=== PATIENT | female | born 1950 | race Caucasian/White ===

== ENCOUNTER → 2019-11-10 16:10 | Outpatient (BNVA) | payer MEDICARE, OTHER, SELFPAY | PROVIDERS: Family Provider Family Medicine; PCP Family Medicine; Visit Provider Internal Medicine Cardiovascular Disease | DX: I10 Essential (primary) hypertension (principal); R06.02 Shortness of breath; I48.0 Paroxysmal atrial fibrillation; E78.2 Mixed hyperlipidemia; I34.0 Nonrheumatic mitral (valve) insufficiency; Z79.01 Long term (current) use of anticoagulants; E78.5 Hyperlipidemia, unspecified | CPT/HCPCS: 80048; 80061; 80076; 82550; 84443; 85025 ==

== ENCOUNTER 2019-12-01 13:46 | Outpatient (CLI) | payer MEDICARE, OTHER, SELFPAY ==
--- NOTE | 2019-12-01 14:03 | USCV_ITS ---
Td Delphine Age: 69 Gender: F : 1950 Exam Date: 12/01/2019 14:12 Ordering Phys: Faith Escobar MD ([email or web address]) Technologist: Liv Avila Exam Location: [facility] [place] Indication: EXERCISE INDUCED FATIGUE BP: / HR: 56 Rhythm: Sinus Technical Quality: Adequate MEASUREMENTS (Male / Female) Normal Values 2D ECHO LV Diastolic Diameter PLAX 3.5 cm 4.2 - 5.9 / 3.9 - 5.3 cm LV Systolic Diameter PLAX 1.8 cm LV Chamber Size 3.7 cm IVS Diastolic Thickness 1.0 cm 0.6 - 1.0 / 0.6 - 0.9 cm IVS Systolic Thickness 1.6 cm LVPW Diastolic Thickness 1.1 cm 0.6 - 1.0 / 0.6 - 0.9 cm LVPW Systolic Thickness 1.3 cm RV Chamber Size 2.0 cm LVOT Diameter 2.1 cm LV Ejection Fraction 2D Teich 80.1 % LV Ejection Fraction MOD 2C 71.0 % LV Ejection Fraction 2C AL 73.2 % LA Diameter 2.9 cm LA Width 3.3 cm LA Height 3.4 cm RA Width 2.8 cm RA Height 3.2 cm Aorta at Sinotubular Diameter 3.2 cm M-MODE LV Diastolic Diameter MM 3.9 cm 4.2 - 5.9 / 3.9 - 5.3 cm LV Systolic Diameter MM 2.2 cm LV Ejection Fraction MM Teich 75.9 % IVS Diastolic Thickness MM 1.1 cm 0.6 - 1.0 / 0.6 - 0.9 cm IVS Systolic Thickness MM 1.5 cm LVPW Diastolic Thickness MM 1.1 cm 0.6 - 1.0 / 0.6 - 0.9 cm LVPW Systolic Thickness MM 1.4 cm RV Diastolic Diameter MM 1.3 cm Aortic Annulus Diameter 2.8 cm LA Ao Ratio MM 1.0 MV E Point Septal Separation 0.2 cm DOPPLER AV Peak Velocity 163.0 cm/s LVOT Peak Velocity 129.0 cm/s AV Area Cont Eq vti 2.8 cm squared AV Area Cont Eq pk 2.6 cm squared MV Area PHT 4.0 cm squared Mitral E to A Ratio 1.1 MV E' Velocity 7.0 cm/s Mitral E to MV E' Ratio 12.8 Mitral E to LV E' Lateral Ratio 14.0 Mitral E to LV E' Septal Ratio 11.9 TR Peak Velocity 213.0 cm/s TR Peak Gradient 18.2 mmHg TR Mean Velocity 136.7 cm/s TR Mean Gradient 8.5 mmHg TR Velocity Time Integral 55.2 cm TV Peak E Velocity 50.0 cm/s Right Atrial Pressure 3.0 mmHg Pulmonary Artery Systolic Pressu 21.1 mmHg PV Peak Velocity 76.0 cm/s RV Acceleration Time 0.2 s RV Ejection Time 0.4 s RV AcT/ET 0.4 FINDINGS Left Ventricle Normal left ventricular size and systolic function, EF 76 %. No regional wall motion abnormalities. Right Ventricle Normal right ventricular size and systolic function. Right Atrium The right atrium is normal in size. Left Atrium The left atrium is normal in size. Mitral Valve Thickened mitral valve. Mild mitral valve regurgitation. Aortic Valve Thickened aortic valve. Trace to mild aortic valve regurgitation. Tricuspid Valve Mild tricuspid valve regurgitation. Pulmonic Valve No gross abnormalities noted Pericardium Normal pericardium without effusion. Aorta Normal ascending aorta dimension. CONCLUSIONS Normal left ventricular size and systolic function, EF 76 %. No regional wall motion abnormalities. Thickened mitral valve. Mild mitral valve regurgitation. Thickened aortic valve. Trace to mild aortic valve regurgitation. Mild tricuspid valve regurgitation. Estimated pulmonary artery peak systolic pressure of 21 mmHg There is no pericardial effusion. There are no intracardiac masses. Compared to the study from 01/31/2017, there may not be a significant change Dr Faith Escobar MD [facility] (Electronically Signed) Final Date: 02 December 2019 09:18 S
== END 2019-12-01 13:47 | disposition home or self-care (01) ==
LOC: RAD 13:52
PROVIDERS: PCP Family Medicine; Visit Provider Internal Medicine Cardiovascular Disease
DX: R53.83 Other fatigue (principal)
CPT/HCPCS: 93306

== ENCOUNTER → 2019-12-29 08:34 | Outpatient (BNVA) | payer MEDICARE, OTHER, SELFPAY | PROVIDERS: PCP Family Medicine; Visit Provider Nurse Practitioner | DX: R41.9 Unspecified symptoms and signs involving cognitive functions and awareness (principal) | CPT/HCPCS: 99213 ==

== ENCOUNTER → 2020-08-18 09:14 | Outpatient (BNVA) | payer MEDICARE, OTHER, SELFPAY | PROVIDERS: PCP Family Medicine; Visit Provider Surgery | DX: Z20.822 Contact with and (suspected) exposure to COVID-19 (principal) | CPT/HCPCS: 87635 ==

== ENCOUNTER 2020-08-23 06:46 | Day surgery (SDC) | payer MEDICARE, OTHER, SELFPAY ==
--- NOTE | 2020-08-23 06:56 | ANES.PREANE2 ---
Pre-Anesthetic Assessment Pre-Anesthetic Assessment: Height/Weight: Height 1.57 m Weight 56.699 kg Preop Diagnosis: screening Proposed Procedure: Operation Date: 08/23/20 08:00 Proposed Procedures p Colonoscopy 44893 z86.010(Not Applicable) - Kelton Wood MD Familial anesthetic complications: None Was Beta Madelyn taken within 24 hours: Yes Was Clonidine taken within 24 hours: N/A Last intake: NPO > 8 hrs Social: Social History: No alcohol and No tobacco Exam: Pre-Anes Outpt Exam: alert, oriented x 3, clear to auscultation bilaterally and regular rate & rhythm Airway: Cervical ROM: WNL MP: 2 Dentition: False CV/HEM: CV/HEM: Afib (off pradaxa since friday) and HTN Comments: mild mitral regurge, rarely every takes NTG Metabolic: Metabolic: Thyroid Anesthetic Plan: ASA status: 3 Anesthesia: MAC Risk of > 500 ml blood loss (7ml/kg in children): No PFSH Anesthesia PFSH: Medical History Atrial fibrillation Exercise-induced leg fatigue History of colon polyps Hyperlipemia Hypertension Mitral regurgitation Surgical History H/O foot surgery H/O laminectomy H/O: hysterectomy History of appendectomy Family History Mother Stroke Other Diabetes Social History Smoking and tobacco status: never smoked History of recent travel: No Data Anesthesia Cardiac Studies: No Data to Display
[2020-08-23 07:17] VITALS: BP 141/77; PULSE 58; RESP 16; TEMP 36.5; O2SAT 100
[2020-08-23] MEDS: sodium chloride 0.9% 1,000 ML 30 ML IV (07:38)
--- NOTE | 2020-08-23 07:42 | P.HP_ITS ---
Same Day Surgery H&P Indication for Procedure/HPI DATE OF PROCEDURE: August 23, 2020 CHIEF COMPLAINT/INDICATIONFOR SURGICAL PROCEDURE: History of polyps PREOP DIAGNOSIS: History of colon polyps PLANNED PROCEDRUE: Operation Date: 08/23/20 08:00 Proposed Procedures p Colonoscopy 92062 z86.010(Not Applicable) - Kelton Wood MD This is a pleasant 69 years old female patient presents to my practice with history of colon polyps as at some point she had tubulovillous adenoma. According to the patient had a colonoscopy back in 2014 and she reports that was normal yet she is concerned about her history of colon polyps. She denies any bleeding per rectum or nonintentional weight loss or colon cancer history. Patient is on Pradaxa for her cardiac condition. Interim history 08/23/2020 Patient comes today for surveillance colonoscopy and she did stop the Pradaxa last Friday. ROS All systems have been reviewed negative except as per the above or per problem list Medications/Allergies* Home Medications Medication Instructions Recorded Confirmed Type dicyclomine 10 mg capsule 10 mg PO DAILY PRN cap 11/10/19 08/22/20 History levothyroxine 50 mcg tablet 50 mcg PO DAILY tab 11/10/19 08/22/20 History nitroglycerin 0.4 mg sublingual 0.4 mg SUBLINGUAL Q5M PRN 11/10/19 08/22/20 History tablet Allergies/Adverse Reactions Allergy/AdvReac Type Severity Reaction Status Date / Time Penicillins Allergy itching, Verified 08/23/20 07:43 rash Sulfa (Sulfonamide Allergy pt does Verified 08/23/20 07:43 Antibiotics) not remember the reaction Current Medications: Generic Name Dose Route Start Last Admin Trade Name Freq PRN Reason Stop Dose Admin Sodium Chloride 1,000 mls @ 30 mls/hr 08/23/20 07:15 08/23/20 07:38 Sodium Chloride 0.9% IV 08/24/20 07:14 30 mls/hr .Q24H COLLETTE Administration Pertinent History/Comorbid Conditions* Medical History (Updated 06/15/20 @ 10:52 by Kelton Wood MD) Atrial fibrillation Exercise-induced leg fatigue History of colon polyps Hyperlipemia Hypertension Mitral regurgitation Surgical History (Updated 11/10/19 @ 15:59 by Faith Escobar MD) H/O foot surgery H/O laminectomy H/O: hysterectomy History of appendectomy Family History (Updated 12/29/19 @ 08:51 by Pao Shah LPN) Diabetes Stroke Mother Social History Smoking and tobacco status: never smoked History of recent travel: No Pertinent Exam Findings oriented x 3, clear to auscultation bilaterally, regular rate & rhythm and procedure specific exam findings (Abdominal examination nontender nondistended soft) Recommendations Surgery/Procedure today (Surveillance colonoscopy) Other Plans: Plan of care; After thorough history and physical examination and reviewing the chart, plan to perform surveillance colonoscopy. I discussed with the patient in details the risks,benefits,alternatives and indications.The risk of aspiration, bleeding, soft tissue injury, perforation of the colon and other potential concomitant complications were explained to the patient in details,also the potential need for Laproscoy/Laparotomy to repair any related complications including but not limited to colectomy and or Closotomy.The patient understood this well and did agree to proceed. Rationale was carefully and clearly discussed with the patient.Appropriate informed consent have been reviewed and signed All questions have been answered and all concerns have been addressed to patient's satisfaction. Verbal and written Instructions were given to the patient for colonoscopy prep Coding Level of Care Code Acute Hadoop Software Engineer for Shaista Ramos
[2020-08-23 08:11] VITALS: BP 100/58; PULSE 53; RESP 16; TEMP 36.1; O2SAT 97
--- NOTE | 2020-08-23 08:15 | ANE.PACU2 ---
Inpatient post-anesthesia follow up: Airway intact: Yes Vital signs: Temperature 97.7 F Pulse Rate 58 Respiratory Rate 16 Blood Pressure 141/77 Pulse Oximetry 100 Oxygen Delivery Me thod Oxygen Flow Rate Fraction of Inspir ed Oxygen Hydration adequate: Yes Nausea and vomiting: No Pain level: 1 Mental status: Baseline
[2020-08-23 08:39] VITALS: BP 122/54; PULSE 54; RESP 16; O2SAT 98
== END 2020-08-23 08:53 | disposition home or self-care (01) ==
PROVIDERS: PCP Family Medicine; Visit Provider Surgery
PROC: 0DJD8ZZ Inspection of Lower Intestinal Tract, Via Natural or Artificial Opening Endoscopic (ICD-10-PCS; CPT 45378; principal; 2020-08-23 08:00)
DX: Z12.11 Encounter for screening for malignant neoplasm of colon (principal); Z86.010 Personal history of colon polyps; K57.30 Diverticulosis of large intestine without perforation or abscess without bleeding; E78.5 Hyperlipidemia, unspecified; I10 Essential (primary) hypertension; I48.91 Unspecified atrial fibrillation; I34.0 Nonrheumatic mitral (valve) insufficiency; Z83.3 Family history of diabetes mellitus; Z82.3 Family history of stroke
CPT/HCPCS: 45378; 96360; J2704; J7030

== ENCOUNTER → 2020-10-06 08:21 | Outpatient (BNVA) | payer MEDICARE, OTHER, SELFPAY | PROVIDERS: PCP Family Medicine; Visit Provider Nurse Practitioner | DX: G31.84 Mild cognitive impairment of uncertain or unknown etiology (principal) | CPT/HCPCS: 99212 ==

== ENCOUNTER 2021-07-09 08:12 | Outpatient (CLI) | payer MEDICARE, OTHER, SELFPAY ==
--- NOTE | 2021-07-09 08:25 | MM_ITS ---
WS: [id number] BILATERAL SCREENING DIGITAL MAMMOGRAM WITH CAD HISTORY: SCREENING COMPARISON: 06/06/2020, 12/09/2018 and 11/20/2017 Bilateral CC and MLO views submitted. Computer aided detection analyzed. Breast composition: The breasts are heterogeneously dense, which may obscure small masses. No suspici ous masses, microcalcifications or architectural distortion. Benign calcifications and arterial calci fications. MM/[place] [id number] IMPRESSION: BI-RADS: 2-Benign FOLLOW UP: 1 Year Follow-up
== END 2021-07-09 08:13 | disposition home or self-care (01) ==
PROVIDERS: PCP Family Medicine; Visit Provider Family Medicine
DX: Z12.31 Encounter for screening mammogram for malignant neoplasm of breast (principal)
CPT/HCPCS: 77067

== ENCOUNTER → 2021-10-04 09:43 | Outpatient (BNVA) | payer MEDICARE, OTHER, SELFPAY | PROVIDERS: PCP Family Medicine; Visit Provider Internal Medicine Cardiovascular Disease | DX: I48.0 Paroxysmal atrial fibrillation (principal); I34.0 Nonrheumatic mitral (valve) insufficiency; I10 Essential (primary) hypertension; E78.2 Mixed hyperlipidemia; Z79.01 Long term (current) use of anticoagulants | CPT/HCPCS: 99214 ==

== ENCOUNTER 2022-03-23 02:45 | Inpatient (IN) | payer MEDICARE, OTHER, SELFPAY ==
[2022-03-23] VITALS (14 sets, daily range): BP systolic 115–158; BP diastolic 62–83; PULSE 47–87; RESP 15–20; TEMP 36.6–36.9; O2SAT 91–100; BMI 21.6
--- NOTE | 2022-03-23 03:12 | ECG_ITS ---
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 Measurements Intervals [place] Rate: 51 P: 71 NV: 164 QRS: 68 QRSD: 98 T: 60 QT: 488 QTc: 450 Interpretive Statements SINUS BRADYCARDIA Compared to ECG 08/09/2018 08:12:10 No significant changes Electronically Signed On 03-23-2022 10:50:32 CDT by Lucille Ho M.D. [id number]
--- NOTE | 2022-03-23 03:18 | XRR_ITS ---
PROCEDURE INFORMATION: Exam: XR Chest Exam date and time: 03/23/2022 4:16 AM Age: 71 years old Clinical indication: Pain; Chest pressure; Additional info: Abd pain/back pain TECHNIQUE: Imaging protocol: Radiologic exam of the chest. Views: 1 view. COMPARISON: CR XR chest 1V [id number] 08/09/2018 8:22 AM FINDINGS: Lungs: Unremarkable. No consolidation. Pleural spaces: Unremarkable. No pleural effusion. No pneumothorax. Heart/Mediastinum: Unremarkable. No cardiomegaly. Bones/joints: Unremarkable. XR/XR chest 1V portable [id number] IMPRESSION: No acute findings.
[2022-03-23 03:28] LABS: Basophils # 0.1 10^3/uL (0.0-0.1); Basophils % 0.6 %; Eosinophils % 0.3 %; Hematocrit 37.6 % (37.0-47.0); Hemoglobin 12.5 g/dL (11.5-15.3); Lymphocytes # 1.2 10^3/uL (0.8-4.8); Lymphocytes % 12.2 %; Mean Corpuscular HGB Conc 33.2 g/dL (30.0-36.0); Mean Corpuscular Hemoglobin 32.5 pg (28.0-34.0); Mean Corpuscular Volume 97.7 fl (81-99); Mean Platelet Volume 10.1 fL (7.4-10.4); Monocytes # 0.5 10^3/uL (0.2-0.9); Monocytes % 4.8 %; Neutrophils # 8.12 10^3/uL (1.8-7.7); Neutrophils % 81.8 %; Nucleated Red Blood Cells % 0 %; Platelet Count 206 10^3/cmm (130-400); Red Blood Count 3.85 10^6/uL (4.1-5.3); Red Cell Distribution Width 13.1 % (12.1-15.1); White Blood Count 9.9 10^3/uL (4.0-10.0)
[2022-03-23] MEDS: HYDROmorphone 1 mg/mL INJ 1 mL 0.5 MG IVP ×2 (03:28→06:29)
[2022-03-23] MEDS: ondansetron 2 mg/ML SDV 2 mL 4 MG IVP ×3 (03:28→20:44)
--- NOTE | 2022-03-23 03:42 | CTR_ITS ---
PROCEDURE INFORMATION: Exam: CT Abdomen And Pelvis Without Contrast Exam date and time: 03/23/2022 4:26 AM Age: 71 years old Clinical indication: Abdominal pain; Flank; Right; Prior surgery; Surgery date: 6+ months; Surgery type: Appy, hysterectomy; Additional info: R flank pain TECHNIQUE: Imaging protocol: Computed tomography of the abdomen and pelvis without contrast. Radiation optimization: All CT scans at this facility use at least one of these dose optimization techniques: automated exposure control; mA and/or kV adjustment per patient size (includes targeted exams where dose is matched to clinical indication); or iterative reconstruction. COMPARISON: CT abdomen pelvis w con* [id number] 07/21/2018 9:53 AM RADIATION DOSE METRICS: Total DLP (mGy-cm): 358.31 FINDINGS: Diaphragm: Small sliding hiatal hernia. Liver: Normal. No mass. Gallbladder and bile ducts: Normal. No calcified stones. No ductal dilation. Pancreas: Normal. No ductal dilation. Spleen: Normal. No splenomegaly. Adrenal glands: Normal. No mass. Kidneys and ureters: Normal. No hydronephrosis. Stomach and bowel: There are multiple loops of dilated fluid-filled small bowel in the pelvis. There is also fecalization of contents in some of the small bowel loops. These loops are dilated up to a diameter of 3.2 cm. The distal ileum is not dilated. These findings could be due to a distal small bowel obstruction. There is a prominent amount of stool in the colon. There is sigmoid diverticulosis but no evidence of acute diverticulitis. Appendix: No evidence of appendicitis. Intraperitoneal space: Small ascites in the abdomen and pelvis. No free air. Vasculature: Mild calcification of the abdominal aorta. No abdominal aortic aneurysm. Lymph nodes: Unremarkable. No enlarged lymph nodes. Urinary bladder: Unremarkable as visualized. Reproductive: Hysterectomy. Bones/joints: Chronic degenerative changes are present in the lumbar spine especially in the lumbar facet joints. There is grade 1-2 spondylolisthesis at the L4-L5 level. No acute bony abnormality. Soft tissues: Unremarkable. CT/CT kidney stone [id number] IMPRESSION: 1. There are multiple loops of dilated small bowel in the pelvis with normal caliber of the more distal ileum. These findings may be due to a distal small bowel obstruction. 2. Small ascites. No free air. 3. Diverticulosis. 4. Prominent chronic degenerative changes in the spine.
[2022-03-23 03:48] LABS: Alanine Aminotransferase 19 U/L (0-33); Albumin Level 4.6 g/dL (3.5-5.2); Alkaline Phosphatase 77 U/L (35-105); Anion Gap 14.6 (5-19); Aspartate Amino Transferase 24 U/L (0-32); Blood Urea Nitrogen 20 mg/dL (8-23); Calcium 10.2 mg/dL (8.5-10.5); Carbon Dioxide 25 mmol/L (22-29); Chloride 97 mmol/L (98-107); Globulin 2.4 g/dL (1.3-4.6); Glucose 168 mg/dL (65-115); Osmolality Calculated 282 mOsm/kg (285-295); Potassium 3.6 mmol/L (3.5-5.1); Sodium 133 mmol/L (136-145); Total Bilirubin 0.2 mg/dL (0.15-1.2)
--- NOTE | 2022-03-23 03:54 | ED_ITS ---
Documented by User: Merlin Jacobson DO 03/23/22 13:10 HPI - Abdominal Pain General: Chief Complaint: Abdominal Pain Stated Complaint: n/v , possible food poision Time Seen by Provider: 03/23/22 03:01 Source: patient and family History of Present Illness: 71-year-old female with a history of severe right flank and abdominal pain this morning. She notes that she felt wonderful yesterday. Pain was sudden in onset. She has vomited several times as well. She denies fever. No diarrhea. No blood in the stool Pertinent past history: other Onset (ago): hour(s) Location: R flank Severity: severe Quality: cramping and stabbing Radiation: RLQ Exacerbating factors: movement Relieving factors: nothing Associated Symptoms: Reports chills, nausea and vomiting; Denies bloating, change in bowel habits, change in stool character, constipation, GI cramping, diarrhea, fever(s) and hematuria Review of Systems Const: Reports: chills; Denies: fever(s) ENMT: Denies: throat pain Card: Denies: chest pain or palpitations Resp: Denies: dyspnea, productive cough or non-productive cough GI: Reports: abdominal pain, nausea and vomiting; Denies: diarrhea, constipation, bloating, GI cramping, change in bowel habits or change in stool character : Reports: flank pain; Denies: difficulty voiding, urinary urgency or hematuria Musc: Reports: back pain; Denies: neck pain PFSH ED 2 PFSH: Medical History Atrial fibrillation Diverticulosis Exercise-induced leg fatigue History of colon polyps Hyperlipemia Hypertension Mild cognitive impairment Mitral regurgitation Surgical History H/O foot surgery H/O laminectomy H/O: hysterectomy History of appendectomy History of colonoscopy (~2014) History of ear surgery Hx of cataract extraction Hx of tubal ligation Family History Mother Stroke CAD (coronary artery disease) Cancer Dementia Diabetes Father CAD (coronary artery disease) Cancer Chronic kidney disease (CKD) Diabetes Denies family history of Clotting disorder Suicide Anesthesia complication Bleeding disorder Lung disease Social History Smoking and tobacco status: never smoked Alcohol intake: never History of recent travel: No Physical Exam Const: GENERAL APPEARANCE: cooperative, ill appearing and frail appearing HENMT: COMMON NORMALS: normocephalic, atraumatic and Normal external nose present HEAD & SCALP: normocephalic and atraumatic NOSE: Normal external nose present Eye: COMMON NORMALS: Equal, round and reactive pupils present and EOMs intact bilaterally PUPIL: Yes Equal, round and reactive pupils present Neck/C-Spine: CERVICAL SPINE: No Cervical spine tenderness Chest: COMMONS NORMALS: normal inspection of the chest Resp: COMMON NORMALS: normal respiratory effort, No use of accessory muscles and clear to auscultation bilaterally AUSCULTATION: clear to auscultation bilaterally Cardio: COMMON NORMALS: regular rhythm RATE: bradycardic RHYTHM: regular rhythm GI: COMMON NORMALS: Soft to palpation PALPATION: Yes Soft to palpation and Yes Tenderness to palpation present (GI) Details: RLQ and RUQ : BLADDER/KIDNEY EXAM: Yes CVA tenderness on the right Back/Pelvis: GENERAL BACK: Yes CVA tenderness Extremity: COMMON NORMALS: no pedal edema Neuro: FILIBERTO COMA SCALE: document GCS findings [place] coma scale eye opening: Spontaneous [place] coma scale verbal response: Orientated [place] coma scale motor response: Obey commands [place] coma scale total score: 15 Course Vital Signs: Vital signs: Vital Signs Temperature 98.4 F 03/23/22 02:52 Pulse Rate 79 03/23/22 11:55 Respiratory Rate 15 03/23/22 11:55 Blood Pressure 158/81 03/23/22 11:55 Pulse Oximetry 95 03/23/22 11:55 Oxygen Delivery Me thod 03/23/22 11:55 MDM - Abdominal Pain Lab Data : 03/23/22 03:14 03/23/22 03:14 Labs/Radiology: Radiology Impressions Abdomen/Pelvis CT 03/23/22 03:42 IMPRESSION: 1. There are multiple loops of dilated small bowel in the pelvis with normal caliber of the more distal ileum. These findings may be due to a distal small bowel obstruction. 2. Small ascites. No free air. 3. Diverticulosis. 4. Prominent chronic degenerative changes in the spine. Chest X-Ray 03/23/22 08:21 IMPRESSION: 1. The tip of the nasogastric tube projects on the stomach but the distal side port projects just above the level of the GE junction. 2. No significant cardiopulmonary abnormality. Laboratory Results WBC 9.9 10^3/uL (4.0-10.0) 03/23/22 03:14 RBC 3.85 10^6/uL (4.1-5.3) L 03/23/22 03:14 Hgb 12.5 g/dL (11.5-15.3) 03/23/22 03:14 Hct 37.6 % (37.0-47.0) 03/23/22 03:14 MCV 97.7 fl (81-99) 03/23/22 03:14 MCH 32.5 pg (28.0-34.0) 03/23/22 03:14 MCHC 33.2 g/dL (30.0-36.0) 03/23/22 03:14 RDW 13.1 % (12.1-15.1) 03/23/22 03:14 Plt Count 206 10^3/cmm (130-400) 03/23/22 03:14 MPV 10.1 fL (7.4-10.4) 03/23/22 03:14 Neut % (Auto) 81.8 % 03/23/22 03:14 Lymph % (Auto) 12.2 % 03/23/22 03:14 [place] % (Auto) 4.8 % 03/23/22 03:14 Eos % (Auto) 0.3 % 03/23/22 03:14 Baso % (Auto) 0.6 % 03/23/22 03:14 Neut # (Auto) 8.12 10^3/uL (1.8-7.7) H 03/23/22 03:14 Lymph # (Auto) 1.2 10^3/uL (0.8-4.8) 03/23/22 03:14 [place] # (Auto) 0.5 10^3/uL (0.2-0.9) 03/23/22 03:14 Eos # (Auto) 0.0 10^3/uL (0.0-0.8) 03/23/22 03:14 Baso # (Auto) 0.1 10^3/uL (0.0-0.1) 03/23/22 03:14 Nucleated RBC % (auto) 0 % 03/23/22 03:14 Nucleated RBCs # 0.0 /100WBC 03/23/22 03:14 Sodium 133 mmol/L (136-145) L 03/23/22 03:14 Potassium 3.6 mmol/L (3.5-5.1) 03/23/22 03:14 Chloride 97 mmol/L (98-107) L 03/23/22 03:14 Carbon Dioxide 25 mmol/L (22-29) 03/23/22 03:14 Anion Gap 14.6 (5-19) 03/23/22 03:14 BUN 20 mg/dL (8-23) 03/23/22 03:14 Creatinine 0.9 mg/dL (0.5-0.9) 03/23/22 03:14 GFR Calculation Not Reportable 03/23/22 03:14 Glucose 168 mg/dL (65-115) H 03/23/22 03:14 Calculated Osmolality 282 mOsm/kg (285-295) L 03/23/22 03:14 Calcium 10.2 mg/dL (8.5-10.5) 03/23/22 03:14 Total Bilirubin 0.2 mg/dL (0.15-1.2) 03/23/22 03:14 AST 24 U/L (0-32) 03/23/22 03:14 ALT 19 U/L (0-33) 03/23/22 03:14 Alkaline Phosphatase 77 U/L (35-105) 03/23/22 03:14 Total Protein 7.0 g/dL (6.6-8.7) 03/23/22 03:14 Albumin 4.6 g/dL (3.5-5.2) 03/23/22 03:14 Globulin 2.4 g/dL (1.3-4.6) 03/23/22 03:14 Urine Color Yellow (Yellow) 03/23/22 03:23 Urine Appearance Hazy (CLEAR) A 03/23/22 03:23 Urine pH 8 (5-7) H 03/23/22 03:23 Ur Specific [place] 1.010 (1.005-1.030) 03/23/22 03:23 Urine Protein Neg (Negative) 03/23/22 03:23 Urine Glucose (UA) Norm (Normal) 03/23/22 03:23 Urine Ketones Negative (Negative) 03/23/22 03:23 Urine Blood 2+ (Negative) H 03/23/22 03:23 Urine Nitrate Negative (Negative) 03/23/22 03:23 Urine Bilirubin Neg (Negative) 03/23/22 03:23 Prot Sulfosalicylic Acd Negative (Negative) 03/23/22 03:23 Urine Urobilinogen Norm mg/dL (Negative) 03/23/22 03:23 Ur Leukocyte Esterase Negative (Negative) 03/23/22 03:23 Urine RBC None /hpf (0-2) 03/23/22 03:23 Urine WBC None /hpf (0-5) 03/23/22 03:23 Ur Squamous Epith Cells None /hpf (0-5) 03/23/22 03:23 Amorphous Sediment 4+ /hpf 03/23/22 03:23 Urine Bacteria None /hpf (NONE) 03/23/22 03:23 Discharge Plan Discharge Patient Disposition: Admitted As Inpatient Admit Provider: Jorge Smalls Clinical Impression: Small bowel obstruction Condition: Stable Coding Level of Care Code ED Personal Injury Legal Assistant for Chg Fwd Exam Comprehensive Documented by User: Bessy Horne MD 03/23/22 08:07 HPI - Abdominal Pain General: Chief Complaint: Abdominal Pain Stated Complaint: n/v , possible food poision Time Seen by Provider: 03/23/22 03:01 [facility] ED PFSH: Medical History Atrial fibrillation Diverticulosis Exercise-induced leg fatigue History of colon polyps Hyperlipemia Hypertension Mild cognitive impairment Mitral regurgitation Surgical History H/O foot surgery H/O laminectomy H/O: hysterectomy History of appendectomy History of colonoscopy (~2014) History of ear surgery Hx of cataract extraction Hx of tubal ligation Family History Mother Stroke CAD (coronary artery disease) Cancer Dementia Diabetes Father CAD (coronary artery disease) Cancer Chronic kidney disease (CKD) Diabetes Denies family history of Clotting disorder Suicide Anesthesia complication Bleeding disorder Lung disease Social History Smoking and tobacco status: never smoked Alcohol intake: never History of recent travel: No Physical Exam Neuro: FILIBERTO COMA SCALE: document GCS findings [place] coma scale total score: 15 Course Vital Signs: Vital signs: Vital Signs Temperature 98.4 F 03/23/22 02:52 Pulse Rate 79 03/23/22 11:55 Respiratory Rate 15 03/23/22 11:55 Blood Pressure 158/81 03/23/22 11:55 Pulse Oximetry 95 03/23/22 11:55 Oxygen Delivery Me thod 03/23/22 11:55 MDM - Abdominal Pain Medical Decision Making Patient presents here with abdominal pain along with vomiting CT shows distal small bowel obstruction I did speak to the hospitalist will place NG tube and admit at this time. Lab Data : 03/23/22 03:14 03/23/22 03:14 Labs/Radiology: Radiology Impressions Abdomen/Pelvis CT 03/23/22 03:42 IMPRESSION: 1. There are multiple loops of dilated small bowel in the pelvis with normal caliber of the more distal ileum. These findings may be due to a distal small bowel obstruction. 2. Small ascites. No free air. 3. Diverticulosis. 4. Prominent chronic degenerative changes in the spine. Chest X-Ray 03/23/22 08:21
[2022-03-23] MEDS: sodium chloride 0.9% 1,000 ML 999 ML IV (04:15)
[2022-03-23 04:17] LABS: Add Urine Microscopic? YES; Bilirubin Urine Neg (Negative); Blood Urine 2+ (Negative); Glucose Urine UA Norm (Normal); Ketones Urine Negative (Negative); Leukocyte Esterase Urine Negative (Negative); Nitrate Urine Negative (Negative); Protein Urine Neg (Negative); Sulfosalicylic Acid Urine Negative (Negative); Urine Appearance Hazy (CLEAR); Urine Color Yellow (Yellow); Urobilinogen Urine Norm (Negative); pH Urine 8 (5-7)
[2022-03-23 04:18] LABS: Amorphous Sediment Urine 4+ /hpf
[2022-03-23 04:19] LABS: Add Urine Culture? No
[2022-03-23] MEDS: midazolam 1 mg/mL INJ 2 mL IVP (08:10)
--- NOTE | 2022-03-23 08:21 | XRR_ITS ---
PROCEDURE INFORMATION: Exam: XR Chest Exam date and time: 03/23/2022 8:24 AM Age: 71 years old Clinical indication: Device placement; Ng tube; Additional info: Ng tube placement TECHNIQUE: Imaging protocol: Radiologic exam of the chest. Views: 1 view. COMPARISON: CR (CHEST, ) 03/23/2022 4:16 AM FINDINGS: Tubes, catheters and devices: A nasogastric tube is present with the tip projecting in the stomach. The side port however projects just above the level of the GE junction. Lungs: Unremarkable. No consolidation. Pleural spaces: Unremarkable. No pleural effusion. No pneumothorax. Heart/Mediastinum: Unremarkable. No cardiomegaly. Bones/joints: Unremarkable. XR/XR chest 1V portable [id number] IMPRESSION: 1. The tip of the nasogastric tube projects on the stomach but the distal side port projects just above the level of the GE junction. 2. No significant cardiopulmonary abnormality.
--- NOTE | 2022-03-23 08:29 | PC.NURSE ---
16FR NG TUBE PLACED. AUSCULTATED AND XRAY FOR VERIFICATION OF PLACEMENT. NG TUBE HOOKED TO INTERMITTENT SUCTION.
--- NOTE | 2022-03-23 12:06 | P.HP_ITS ---
Providers/Chief Complaint Admitting Physician: Jorge Smalls MD Primary Care Provider: Shannan Brennan DO Chief Complaint: n/v , possible food poision History of Present Illness Delphine Appiah is a 71 year old female with history of hypertension, atrial fibrillation, mitral regurgitation, hyperlipidemia, mild cognitive disability presented to the ER today because of abdominal pain which woke her up from her sleep today morning along with multiple episodes of nausea and vomiting. Patient states she was at baseline health till last night when she went to sleep. As per the patient she has been having her regular bowel movements which are usually few pellets few times a week. As per the patient takes Imodium very regularly. Patient confirms taking Imodium regularly for ooze from her anus illness which seems to help her. She Last took Imodium at least 2 tab lets last week. States she is still passing flatus. Complaining of abdominal pain. Abdominal pain is generalized mostly in the upper area radiating to back. Denies any melena, hematochezia, hemoptysis or hematemesis. Her last colonoscopy was in August [address] Wood concerning for small intestine diverticulosis CT abdomen pelvis done in the ER is as below concerning for small bowel obs truction. Review of Systems General: Reports: 10 or more systems reviewed and unremarkable except in HPI and below Const: Denies: fever(s), chills, body aches, change in appetite, change in weight, malaise, night sweats, diaphoresis, change in sleep pattern, daytime sleepiness or snoring Eyes: Denies: change in vision, blurry vision, photophobia, eye discomfort or eye discharge ENMT: Denies: throat pain, enlarged tonsils, hoarseness, mouth pain, oral sores, dry mouth, tinnitus, nasal congestion or post nasal drip Card: Denies: chest pain, palpitations, irregular heart rhythm, edema, swelling of feet/ankles, lightheadedness, syncope, pre-syncope, dyspnea on exertion, orthopnea, leg pain with exertion or acrocyanosis Resp: Denies: dyspnea, productive cough, non-productive cough, wheezing, stridor, pain on inspiration, change in phlegm color, hemoptysis or chest congestion GI: Denies: abdominal pain, nausea, vomiting, hematemesis, coffee ground emesis, dysphagia, heartburn, diarrhea, constipation, bloating, GI cramping, change in bowel habits, pain on defecation, hematochezia or melena : Denies: flank pain, dysuria, urinary frequency, urinary urgency, urinary hesitancy, nocturia or hematuria Musc: Denies: neck pain, back pain, extremity pain, joint pain, joint swelling, joint redness, joint stiffness or limited range of motion Neuro: Denies: headache(s), numbness in extremities, weakness in extremities, sensory changes, lack of coordination, difficulty walking, frequent falls, dizziness, vertigo, confusion, Slurred speech present, difficulty communicating thoughts or seizure-like activity Psych: Denies: anxiety, depression, mood swings, panic attacks, hopelessness or irritability Endo: Denies: polyuria, polydipsia, tired all the time, cold intolerance, excessive sweating, flushing or heat intolerance Rui/Lymph: Denies: easy bruising or easy bleeding All/Imm: Denies: tongue swelling, facial swelling or acute wheezing Medications/Allergies Home Medications Medication Instructions Recorded Confirmed Last Taken Type dicyclomine 10 mg capsule 10 mg PO DAILY PRN Pain 11/10/19 03/23/22 08/22/20 06:00 History levothyroxine 50 mcg tablet 50 mcg PO DAILY 11/10/19 03/23/22 08/23/20 06:00 History nitroglycerin 0.4 mg sublingual 0.4 mg sublingual Q5M PRN Pain 11/10/19 03/23/22 2 Years Ago History tablet (Nitrostat) ~08/23/18 memantine 10 mg tablet 10 mg PO BID #60 tabs 07/12/20 03/23/22 08/22/20 06:00 Rx metoprolol succinate 50 mg 50 mg PO BID #180 tabs 04/14/21 03/23/22 Unknown Rx tablet,extended release 24 hr amlodipine 10 mg tablet 10 mg PO DAILY #100 tabs 09/20/21 03/23/22 Unknown Rx dabigatran etexilate 75 mg capsule 75 mg PO BID 03/23/22 03/23/22 Unknown History (Pradaxa) donepezil 5 mg tablet (Aricept) 5 mg PO BID 03/23/22 03/23/22 Unknown History ezetimibe 10 mg-simvastatin 40 mg 1 tab PO DAILY 03/23/22 03/23/22 Unknown History tablet Allergies Allergy/AdvReac Type Severity Reaction Status Date / Time Penicillins Allergy itching, Verified 10/20/21 17:23 rash Sulfa (Sulfonamide Allergy pt does Verified 10/20/21 17:23 Antibiotics) not remember the reaction PFSH Acute PFSH: Medical History (Updated 03/23/22 @ 12:09 by Jorge Smalls MD) Atrial fibrillation Diverticulosis Exercise-induced leg fatigue History of colon polyps Hyperlipemia Hypertension Mild cognitive impairment Mitral regurgitation Surgical History H/O foot surgery H/O laminectomy H/O: hysterectomy History of appendectomy History of colonoscopy (~2014) History of ear surgery Hx of cataract extraction Hx of tubal ligation Family History Mother Stroke CAD (coronary artery disease) Cancer Dementia Diabetes Father CAD (coronary artery disease) Cancer Chronic kidney disease (CKD) Diabetes Denies family history of Clotting disorder Suicide Anesthesia complication Bleeding disorder Lung disease Social History Smoking and tobacco status: never smoked Alcohol intake: never History of recent travel: No Vitals/I&O/Wt Last Vital Signs Temp 98.4 F 03/23/22 02:52 Pulse 79 03/23/22 11:55 Resp 15 03/23/22 11:55 BP 158/81 03/23/22 11:55 Pulse Ox 95 03/23/22 11:55 O2 Del Method 03/23/22 11:55 03/22/22 03/23/22 03/23/22 22:59 06:59 14:59 Intake Total 1000 / 1000 Balance 1000 / 1000 Weight last 48 hrs Weight 53.615 kg Physical Exam Narrative: General: No acute distress, AO x3, NG tube in place, dehydrated HEENT: PERRLA, pupils bilaterally equal and reactive Chest: Normal vesicular breath sounds, no added sounds, equal good air entry mitali aterally CVS: S1-S2 irregularly irregular, no murmurs, no tachycardia, no gallops, no rubs Abdomen: Soft, nontender, no organomegaly, bowel sounds present Neuro: No focal deficits, no facial deformity, AO x3, power 5/5 in all limbs Data : 03/23/22 03:14 03/23/22 03:14 A&P Assessment and plan (1) Small bowel obstruction: History of appendectomy, hysterectomy in the past. No history of bowel obstruction in the past. Takes Imodium regularly. Still passing flatus. Keep NG tube in place. Intermittent suction. Conservative treatment. Keep NPO. Milk of magnesia 1 time. Senna Colace twice daily. Monitor electrolytes, early ambulation D5 NS at 50 cc/h for 1 bag. Serial abdominal examination. Abdominal series in a.m. (2) Atrial fibrillation: Takes metoprolol 50 mg twice daily along with Pradaxa for anticoagulation. Switch to full dose Lovenox 1 mg/kg body weight every 12 hours as per creatinine clearance for anticoagulation. Metoprolol 5 mg IV every 4 hours as needed for heart rate of more than 110.5- minute. Qualifiers: Atrial fibrillation type: paroxysmal Qualified Code(s): I48.0 - Paroxysmal atrial fibrillation (3) Hypertension: Goal blood pressure less than 140/90 mmHg. Continue to hold off on medication for now. Monitor accordingly. Qualifiers: Hypertension type: essential hypertension Qualified Code(s): I10 - E ssential (primary) hypertension (4) Hyperlipemia: Qualifiers: Hyperlipidemia type: mixed hyperlipidemia Qualified Code(s): E78.2 - Mixed hyperlipidemia (5) Mitral regurgitation: Last echocardiogram from 2019 shows an EF of 76%, no regional motion ventricular mild MR, mild AI, PASP of 21 mmHg. No signs of fluid overload for now. Continue to monitor. Qualifiers: Cardiac valve disease etiology: nonrheumatic Qualified Code(s): I34.0 - Nonrheumatic mitral (valve) insufficiency (6) Mild cognitive impairment: Plan NPO. Protonix for PUD prophylaxis. Full dose Lovenox. Pepcid DVT prophylaxis. Admit to [facility] with telemetry. Attestations Medical Necessity Statement*: Admission for more than 2 midnights for manag ement of small bowel obstruction while patient is unable to keep anything p.o. Time Spent in Patient Care: Greater than 35 minutes Coding Level of Care Code Acute Counter Top Maker for [facility] Diagnoses Small bowel obstruction K56.609 Atrial fibrillation I48.0 Atrial fibrillation type: paroxysmal Hypertension I10 Hypertension type: essential hypertension Hyperlipemia E78.2 Hyperlipidemia type: mixed hyperlipidemia Mitral regurgitation I34.0 Cardiac valve disease etiology: nonrheumatic Mild cognitive impairment G31.84
[2022-03-23] MEDS: enoxaparin 60 mg/0.6 mL Syringe 50 MG SUBCUT (12:22)
[2022-03-23] MEDS: dextrose 5%-sod chloride 0.9% 1,000 ML 50 ML IV (12:22)
[2022-03-23] MEDS: pantoprazole 40 mg SDV IVP (12:22)
[2022-03-23] MEDS: magnesium hydroxide 30 mL UDC PO (12:22)
[2022-03-23] MEDS: morphine 4 mg/mL SDV 1 mL 1 MG IVP ×3 (12:57→22:42)
[2022-03-23 13:47] LABS: Iron 20 ug/dL (37-145); Percent Saturation 6.6 % (20-50); Total Iron Binding Capacity 300 mcg/dl; Unsaturated Iron Binding 280 ug/dL (112-347)
[2022-03-23 14:01] LABS: Procalcitonin 0.08 ng/mL (0-0.5); Vitamin B12 804 pg/mL (232-1245)
[2022-03-23 14:15] LABS: Thyroid Stimulating Hormone 2.43 uIU/mL (0.27-4.20)
[2022-03-23 14:24] LABS: Folate Level > 20.0 ng/mL (4.8-37.3)
--- NOTE | 2022-03-23 16:36 | XRR_ITS ---
PROCEDURE INFORMATION: Exam: XR Chest Exam date and time: 03/23/2022 5:11 PM Age: 71 years old Clinical indication: Device placement; Ng tube; Additional info: Post ng tube placement TECHNIQUE: Imaging protocol: Radiologic exam of the chest. Views: 1 view. COMPARISON: CR (CHEST, ) 03/23/2022 8:24 AM FINDINGS: Tubes, catheters and devices: Enteric tube tip below the diaphragm in the region of the gastric bubble. Lungs: Unremarkable. No consolidation. Pleural spaces: Unremarkable. No pleural effusion. No pneumothorax. Heart/Mediastinum: Unremarkable. No cardiomegaly. Bones/joints: Unremarkable. XR/XR chest 1V portable [id number] IMPRESSION: 1. Enteric tube tip below the diaphragm in the region of the gastric bubble. 2. Lungs are clear.
[2022-03-24] VITALS (80 sets, daily range): BP systolic 64–130; BP diastolic 29–83; PULSE 70–117; RESP 15–34; TEMP 33.5–36.8; O2SAT 71–100
[2022-03-24] MEDS: morphine 4 mg/mL SDV 1 mL 1 MG IVP ×2 (01:22→08:39)
--- NOTE | 2022-03-24 01:34 | PC.NURSE ---
Daylight savings time change. Pain medicine given 3.5 hours after previous dose this shift.
[2022-03-24 05:51] LABS: Basophils % 0.2 %; Hematocrit 33.6 % (37.0-47.0); Hemoglobin 10.9 g/dL (11.5-15.3); Lymphocytes # 0.7 10^3/uL (0.8-4.8); Lymphocytes % 5.2 %; Mean Corpuscular HGB Conc 32.4 g/dL (30.0-36.0); Mean Corpuscular Hemoglobin 32.3 pg (28.0-34.0); Mean Corpuscular Volume 99.7 fl (81-99); Mean Platelet Volume 10.7 fL (7.4-10.4); Monocytes # 1.8 10^3/uL (0.2-0.9); Monocytes % 12.4 %; Neutrophils # 11.65 10^3/uL (1.8-7.7); Neutrophils % 81.9 %; Nucleated Red Blood Cells % 0 %; Platelet Count 197 10^3/cmm (130-400); Red Blood Count 3.37 10^6/uL (4.1-5.3); Red Cell Distribution Width 13.8 % (12.1-15.1); White Blood Count 14.2 10^3/uL (4.0-10.0)
[2022-03-24 06:11] LABS: Alanine Aminotransferase 15 U/L (0-33); Albumin Level 3.8 g/dL (3.5-5.2); Alkaline Phosphatase 57 U/L (35-105); Aspartate Amino Transferase 18 U/L (0-32); Blood Urea Nitrogen 36 mg/dL (8-23); Calcium 9.2 mg/dL (8.5-10.5); Carbon Dioxide 19 mmol/L (22-29); Chloride 103 mmol/L (98-107); Chol HDL Ratio 1.89 mg/dL (0.0-4.40); Cholesterol 144 mg/dL (0-200); Globulin 2.7 g/dL (1.3-4.6); Glucose 192 mg/dL (65-115); HDL Cholesterol 76 mg/dL (60-100); LDL Cholesterol Calculated 55 mg/dL (50-129); Magnesium 2.4 mg/dL (1.7-2.3); Osmolality Calculated 300 mOsm/kg (285-295); Phosphorus 5.7 mg/dL (2.5-4.5); Sodium 138 mmol/L (136-145); Total Bilirubin 0.3 mg/dL (0.15-1.2); Total Protein 6.5 g/dL (6.6-8.7); Triglycerides 66 mg/dL (0-150); VLDL Cholestrol Calculation 13 mg/dL (0-30)
[2022-03-24 06:13] LABS: Estmated Average Glucose 100; Hemoglobin A1C 5.1 % (4.0-6.0)
--- NOTE | 2022-03-24 08:00 | XRR_ITS ---
PROCEDURE INFORMATION: Exam: XR Abdomen Exam date and time: 03/24/2022 11:36 AM Age: 71 years old Clinical indication: Abdominal pain; Generalized; Additional info: Sbo TECHNIQUE: Imaging protocol: Radiologic exam of the abdomen. Views: Frontal supine view of the abdomen. 1 View. COMPARISON: CT kidney stone [id number] 03/23/2022 4:26 AM FINDINGS: Gastrointestinal tract: Bowel gas pattern is nonspecific. No mass effect upon the bowel loops. Distal rectal gas. Scattered loops of air filled small bowel none of which are dilated. Moderate amount stool within the large bowel. Bones/joints: No acute process within the osseous structures of the spine or pelvis. Soft tissues: Soft tissue prominence in the pelvis either a distended bladder or loops of fluid-filled small bowel. Other findings: No appreciable calcifications XR/XR KUB [id number] IMPRESSION: 1. Bowel gas pattern is nonspecific. 2. Moderate amount stool within the large bowel. 3. Soft tissue prominence in the pelvis either a distended bladder or loops of fluid-filled small bowel.
[2022-03-24] MEDS: ondansetron 2 mg/ML SDV 2 mL 4 MG IVP (09:42)
[2022-03-24 10:35] LABS: Anion Gap 24.6 (5-19); Blood Urea Nitrogen 45 mg/dL (8-23); Calcium 9.2 mg/dL (8.5-10.5); Carbon Dioxide 16 mmol/L (22-29); Chloride 99 mmol/L (98-107); Glucose 194 mg/dL (65-115); Osmolality Calculated 297 mOsm/kg (285-295); Potassium 4.6 mmol/L (3.5-5.1); Sodium 135 mmol/L (136-145)
[2022-03-24] MEDS: cefepime 1,000 MG in sodium chloride 0.9% (plus) 50 ML 100 MG IV (10:48)
[2022-03-24] MEDS: dextrose 5%-sod chloride 0.9% 1,000 ML 125 ML IV ×2 (10:48→18:14)
[2022-03-24] MEDS: HYDROmorphone 1 mg/mL INJ 1 mL 0.2 MG IVP ×3 (10:50→18:12)
[2022-03-24] MEDS: donepezil 5 MG Tablet PO (10:51)
--- NOTE | 2022-03-24 10:51 | P.CONIM_ITS ---
Providers/Reason For Consult Consulting Physician/Specialty*: Dr. Jose Guadalupe Perez DO/General surgery Reason for Consult*: Small bowel obstruction Attending Physician: Jorge Smalls MD Primary Care Provider: Shannan Brennan DO History of Present Illness History of Present Illness Delphine Appiah is a 71 year old female, with a past history of mitral valve regurgitation, A. fib on Pradaxa, tubal ligation, hysterectomy and appendectomy, who presented to the hospital with a 1 day history of right-sided abdominal pain nausea and vomiting. The pain is dull and constant. Movement and palpation make the pain worse. Nothing seems make the pain better. The pain can radiate to her back and across to her abdomen. Denies any hematemesis. She has not had a bowel movement since coming to the hospital but she is still passing flatus. She reports that she normally has little rabbit pellets of stool every day. She may take Imodium once weekly. Review of Systems General: Reports: 10 or more systems reviewed and unremarkable except in HPI and below Medications/Allergies Home Medications Medication Instructions Recorded Confirmed Last Taken Type dicyclomine 10 mg capsule 10 mg PO DAILY PRN Pain 11/10/19 03/23/22 08/22/20 06:00 History levothyroxine 50 mcg tablet 50 mcg PO DAILY 11/10/19 03/23/22 08/23/20 06:00 History nitroglycerin 0.4 mg sublingual 0.4 mg sublingual Q5M PRN Pain 11/10/19 03/23/22 2 Years Ago History tablet (Nitrostat) ~08/23/18 memantine 10 mg tablet 10 mg PO BID #60 tabs 07/12/20 03/23/22 08/22/20 06:00 Rx metoprolol succinate 50 mg 50 mg PO BID #180 tabs 04/14/21 03/23/22 Unknown Rx tablet,extended release 24 hr amlodipine 10 mg tablet 10 mg PO DAILY #100 tabs 09/20/21 03/23/22 Unknown Rx dabigatran etexilate 75 mg capsule 75 mg PO BID 03/23/22 03/23/22 Unknown His tory (Pradaxa) donepezil 5 mg tablet (Aricept) 5 mg PO BID 03/23/22 03/23/22 Unknown History ezetimibe 10 mg-simvastatin 40 mg 1 tab PO DAILY 03/23/22 03/23/22 Unknown History tablet Allergies Allergy/AdvReac Type Severity Reaction Status Date / Time Penicillins Allergy itching, Verified 10/20/21 17:23 rash Sulfa (Sulfonamide Allergy pt does Verified 10/20/21 17:23 Antibiotics) not remember the reaction Current Medications Generic Name Dose Route Start Last Admin Trade Name Freq PRN Reason Stop Dose Admin Enoxaparin Sodium 50 mg 03/23/22 12:00 03/24/22 01:25 [employer]IST [employer]EE [employer]ATIONS Enoxaparin 60 Mg/0.6 Ml Syringe SUBCUT Not Given Q12H COLLETTE Ondansetron HCl 4 mg 03/23/22 11:51 03/24/22 09:42 Ondansetron 2 Mg/Ml Sdv 2 Ml IVP 4 mg Q8H PRN Administration vomiting, or N/V if npo Pantoprazole Sodium 40 mg 03/23/22 12:00 03/23/22 12:22 Pantoprazole 40 Mg Sdv IVP 40 mg Q24H COLLETTE Administration PFSH Acute PFSH: Medical History Atrial fibrillation Diverticulosis Exercise-induced leg fatigue History of colon polyps Hyperlipemia Hypertension Mild cognitive impairment Mitral regurgitation Surgical History H/O foot surgery H/O laminectomy H/O: hysterectomy History of appendectomy History of colonoscopy (~2014) History of ear surgery Hx of cataract extraction Hx of tubal ligation Family History Mother Stroke CAD (coronary artery disease) Cancer Dementia Diabetes Father CAD (coronary artery disease) Cancer Chronic kidney disease (CKD) Diabetes Denies family history of Clotting disorder Suicide Anesthesia complication Bleeding disorder Lung disease Social History Smoking and tobacco status: never smoked Alcohol intake: never History of recent travel: No Vitals/I&O/Wt Last Vital Signs Temp 98.1 F 03/24/22 07:19 Pulse 111 H 03/24/22 07:19 Resp 18 03/24/22 03:32 BP 115/77 03/24/22 07:19 Pulse Ox 96 03/24/22 07:19 O2 Del Method 11/06/22 03:32 03/23/22 03/24/22 03/24/22 23:59 06:59 14:59 Intake Total 1000 / 1000 Balance 1000 / 1000 Weight last 48 hrs Weight 118 lb 3.2 oz Physical Exam Narrative: General : Patient is well developed , no acute distress, oriented x3 Head : Normal cephalic, a-traumatic. Ears : Pinnae and external canal are normal. Hearing is normal. Eyes : PERRLA, Sclera and injection are normal. No conjunctival discharge. Nose : Mucous membranes are without erythema. Throat : buccal mucosa is normal, gums are without significant recession or hypertrophy. Lungs : Equal chest rise bilaterally, no use of accessory muscles, trachea is midline. Cor : Rate and rhythm are normal. Abdomen : Soft, ND, diffuse tenderness to palpation, no g/r/m Extremities : No edema, no cyanosis or clubbing, dorsalis pedis pulses are present bilaterally, non-tender to palpation of calves. Upper extremities are normal bilaterally. Back : non-tender to palpation, no CVA tenderness. Neuro : CN II - XII intact, Upper and lower extremities have equal and full strength Data : 03/24/22 05:28 03/24/22 09:58 A&P Assessment and plan (1) Small bowel obstruction: Plan N.p.o. IV fluids to 125, I would go higher if it went for her age and mitral valve regurgitation. NG tube to low intermittent wall suction Ambulate Add Toradol for pain control Await return of bowel function No acute surgical intervention. Conservative management for now Thank you for this consultation Coding Level of Care Code Acute Research Coordinator for [facility] Fwd Diagnoses Small bowel obstruction K56.609
[2022-03-24 11:37] LABS: Lactate (Lactic Acid level) 7.4 mmol/L (0.5-2.2)
--- NOTE | 2022-03-24 11:46 | PM.PN ---
Subjective Subjective: Today morning on examination seen with family at bedside. Patient is in abdominal pain. She did move the NG tube again. Patient states she is just not able to get into a comfortable position. Continues to feel nauseous. Not passing any bowel movements or flatus. States she is feeling anxious and in pain. On review of vitals her heart rate has been running more than 100 with blood pressure systolic around 90 mmHg. On review of medication it seems patient did not get Lovenox last night as it is charted that patient refused. Vitals/I&O/Wt Last Vital Signs Temp 98.1 F 03/24/22 07:19 Pulse 117 H 03/24/22 11:01 Resp 20 H 03/24/22 11:01 BP 90/48 03/24/22 11:01 Pulse Ox 94 03/24/22 11:01 O2 Del Method 03/24/22 11:01 03/23/22 03/24/22 03/24/22 23:59 06:59 14:59 Intake Total 1050 / 1050 Balance 1050 / 1050 Weight last 48 hrs Weight 53.615 kg Physical Exam Narrative: General: No acute distress, AO x3, NG tube in place, dehydrated HEENT: PERRLA, pupils bilaterally equal and reactive Chest: Normal vesicular breath sounds, no added sounds, equal good air entry bilaterally CVS: S1-S2 irregularly irregular, no murmurs, no tachycardia, no gallops, no rubs Abdomen: Soft, nontender, no organomegaly, bowel sounds present Neuro: No focal deficits, no facial deformity, AO x3, power 5/5 in all limbs Data : 03/24/22 05:28 03/24/22 09:58 A&P Assessment and plan (1) Small bowel obstruction: History of appendectomy, hysterectomy in the past. No history of bowel obstruction in the past. Takes Imodium regularly. Most likely worsening of small bowel obstruction in setting of chronic constipation. Because of worsening symptoms, leukocytosis and developing of DEXTER we will consult surgery for further evaluation and recommendations. Bowel regimen as per surgical team. NG tube. Keep NPO. Repeat BMP, lactate stat. 500 cc IV fluid bolus. Start on D5 NS at 100 cc an hour. Watch for fluid overload. Protonix IV daily, Zofran as needed. X-ray KUB. Serial abdominal examination. (2) Lactic acidosis: Most likely secondary dehydration in setting of SBO. But cannot rule out bowel ischemia. Patient did miss a dose of Lovenox last night. Has a history of atrial fibrillation. Continue with IV fluid bolus. Will repeat lactate in evening. If continues to remain high we will plan for the OR. Care discussed with surgery. (3) Leukocytosis: No diverticulitis on CT scan done yesterday. Patient has remained afebrile. In setting of patient clinically looking sick, tachycardia, lactic acidosis we will start empirically on IV cefepime and Flagyl. Cannot rule Zosyn as patient is allergic to penicillin with rash. (4) Acute kidney injury: Most likely secondary dehydration, lactic acidosis, possibility of sepsis. Medically conceptional for nephrotoxic drugs. IV fluid as above. Repeat BMP in evening. (5) Atrial fibrillation: Takes metoprolol 50 mg twice daily along with Pradaxa for anticoagulation. Continue metoprolol 5 mg every 4 hours as needed for heart rate of more than 110 bpm to be withheld for systolic blood pressure of less than 100 mmHg. Did not get Lovenox last night. With the possibility of going to the OR with worsening bowel obstruction and elevated lactate we will switch to heparin drip without bolus. Qualifiers: Atrial fibrillation type: paroxysmal Qualified Code(s): I48.0 - Paroxysmal atrial fibrillation (6) Mitral regurgitation: Last echocardiogram from 2019 shows an EF of 76%, no regional motion ventricular mild MR, mild AI, PASP of 21 mmHg. No signs of fluid overload for now. Continue to monitor. Qualifiers: Cardiac valve disease etiology: nonrheumatic Qualified Code(s): I34.0 - Nonrheumatic mitral (valve) insufficiency (7) Hypertension: Goal blood pressure less than 140/90 mmHg. Continue to hold off on medication for now. Monitor accordingly. Qualifiers: Hypertension type: essential hypertension Qualified Code(s): I10 - Essential (primary) hypertension (8) Hyperlipemia: Qualifiers: Hyperlipidemia type: mixed hyperlipidemia Qualified Code(s): E78.2 - Mixed hyperlipidemia (9) Mild cognitive impairment: Plan Analgesia: Dilaudid 0.2 every 4 hour as needed. Glycemic control: Not needed Nutrition: NPO. CODE STATUS: Full code PUD prophylaxis: Protonix DVT prophylaxis: Heparin drip will suffice as DVT prophylaxis. Discharge planning: Home with caregiver once medically stable. Transfer to ICU for closer monitoring. This documentation was created by [employer] process safety manager software. Every effort was made to ensure accuracy of process safety manager. Any obvious errors or omissions should be clarified with the author of the document. Attestations Medical Necessity Statement*: Patient requires further hospitalization for management of small bowel obstruction, leukocytosis, lactic acidosis in setting of atrial fibrillation Critical Care Time: The high probability of a clinically significant, sudden or life threatening deterioration of the patient's [cardiac, GI, surgical] system(s) required my full and direct attention, intervention and personal management. The critical care time is as shown. This time is in addition to time spent performing any reported procedures but includes the following: [x] Data and vital sign review and interpretation [x] Patient assessment, examination and intervention [x] Documentation [x] Medication orders and management Critical Care Time (min): 60 Coding Level of Care Code Acute [facility] for [facility] Fwd Diagnoses Small bowel obstruction K56.609 Lactic acidosis E87.20 Leukocytosis D72.829 Acute kidney injury N17.9 Atrial fibrillation I48.0 Atrial fibrillation type: paroxysmal Mitral regurgitation I34.0 Cardiac valve disease etiology: nonrheumatic Hypertension I10 Hypertension type: essential hypertension Hyperlipemia E78.2 Hyperlipidemia type: mixed hyperlipidemia Mild cognitive impairment G31.84
[2022-03-24] MEDS: heparin drip 25,000 UNIT/500 ML PREMIX 15 UNIT IV (12:07)
[2022-03-24] MEDS: sodium chloride 0.9% 500 ML 999 ML IV ×5 (12:16→17:46)
[2022-03-24] MEDS: bisacodyl 10 mg Supp PR (12:22)
--- NOTE | 2022-03-24 13:28 | PC.NURSE ---
To unit Pt brought to unit via bed, pt moved herself from MS bed to ICU bed. Pt has NG tube that has been placed to LIS. Pt has Hep at 15 and just completed NS bolus. Pt is alert and oriented X4. Oriented to room, call light within reach, family at bedside.
[2022-03-24] MEDS: pantoprazole 40 mg SDV IVP (16:12)
[2022-03-24] MEDS: metroNIDAZOLE IV 500 MG/100 ML PREMIX 100 MG IV ×2 (16:13→20:55)
[2022-03-24 17:00] LABS: Basophils % 0.1 %; Lymphocytes # 0.8 10^3/uL (0.8-4.8); Mean Corpuscular HGB Conc 29.6 g/dL (30.0-36.0); Mean Corpuscular Hemoglobin 32.1 pg (28.0-34.0); Mean Corpuscular Volume 108.4 fl (81-99); Monocytes # 0.9 10^3/uL (0.2-0.9); Monocytes % 12.1 %; Neutrophils # 5.35 10^3/uL (1.8-7.7); Neutrophils % 76.2 %; Nucleated Red Blood Cells % 0 %; Platelet Count 144 10^3/cmm (130-400); Red Blood Count 2.49 10^6/uL (4.1-5.3); Red Cell Distribution Width 14.1 % (12.1-15.1)
[2022-03-24 17:23] LABS: Alanine Aminotransferase 23 U/L (0-33); Albumin Level 2.8 g/dL (3.5-5.2); Alkaline Phosphatase 53 U/L (35-105); Aspartate Amino Transferase 50 U/L (0-32); Blood Urea Nitrogen 50 mg/dL (8-23); Calcium 7.9 mg/dL (8.5-10.5); Carbon Dioxide 13 mmol/L (22-29); Chloride 105 mmol/L (98-107); Globulin 1.8 g/dL (1.3-4.6); Glucose 114 mg/dL (65-115); Osmolality Calculated 302 mOsm/kg (285-295); Sodium 139 mmol/L (136-145); Total Bilirubin 0.2 mg/dL (0.15-1.2); Total Protein 4.6 g/dL (6.6-8.7)
[2022-03-24 17:31] LABS: Lactic Sepsis W/Reflex 11.5 mmol/L (0.5-2.2)
[2022-03-24 17:52] LABS: Reflex Lactate Order REFLEX LACTIC ORDERD
--- NOTE | 2022-03-24 18:11 | CTR_ITS ---
PROCEDURE INFORMATION: Exam: CT Abdomen And Pelvis Without Contrast Exam date and time: 03/24/2022 8:17 PM Age: 71 years old Clinical indication: Abdominal pain; Additional info: Possible bowel ischemia, sbo TECHNIQUE: Imaging protocol: Computed tomography of the abdomen and pelvis without contrast. Radiation optimization: All CT scans at this facility use at least one of these dose optimization techniques: automated exposure control; mA and/or kV adjustment per patient size (includes targeted exams where dose is matched to clinical indication); or iterative reconstruction. COMPARISON: CT kidney stone [id number] 03/23/2022 4:26 AM RADIATION DOSE METRICS: Total DLP (mGy-cm): 443.65 FINDINGS: Tubes, catheters and devices: Interval appearance of the enteric tube with its tip in the gastric body. Lungs: Interval subsegmental atelectasis in the lung bases, especially posteriorly. Pleural spaces: Interval appearance of small bilateral pleural effusions. Mediastinal space: Interval fluid in the distended distal esophagus. Small hiatal hernia still suspected. Liver: No change in the liver. Gallbladder and bile ducts: Interval increased density in the gallbladder possibly due to vicarious excretion of contrast. Still no apparent calcified gallstones. No interval biliary ductal dilatation. Pancreas: Interval appearance of fluid and stranding in the left anterior pararenal fat including along the pancreatic tail. Interval minimal stranding in the right anterior pararenal space, but no obvious haziness around the pancreatic head. No pancreatic ductal dilatation. Spleen: Still no splenomegaly. Adrenal glands: Still no large adrenal mass. Kidneys and ureters: Still no hydronephrosis or apparent renal mass. Stomach and bowel: Interval fluid distension of the stomach and the duodenal bulb. Current suggestion of a diverticulum of the 2nd portion of the duodenal loop. Interval worsening of the dilatation of multiple small bowel loops and increase in the number of dilated small bowel loops. Still no dilatation of the terminal ileum. Tight transitional zone still possibly evident in the central pelvis. No apparent pneumatosis. Interval mild dilatation of the transverse colon. Continued ttfj-br-buxurcss sigmoid diverticulosis. Interval haziness in the presacral fat, but no apparent rectal wall thickening. Appendix: No evidence of appendicitis. Intraperitoneal space: Still no free air. Interval worsening of the mild ascites. Vasculature: Still no aortic aneurysm. Continued atherosclerosis. Lymph nodes: No obvious interval adenopathy. Urinary bladder: Interval appearance of the Calvillo catheter in the collapsed bladder. Reproductive: Hysterectomy again evident. Bones/joints: Old compression fractures again evident. Continued degeneration of several discs and prominent degeneration of several lower lumbar facet joints. Continued grade 1-2 spondylolisthesis at L4-L5. Soft tissues: Interval appearance of minimal gas bubbles in the subcutaneous fat of the left anterior abdominal wall slightly below the level of the umbilicus possibly related to a recent injection. Minimal periumbilical hernia containing fat still possible. Weakness of the pelvic floor still possible. CT/CT abdomen pelvis wo con [id number] IMPRESSION: 1. Interval worsening of the small bowel obstruction; tight transitional zone in the central pelvis still probably evident suggesting a high grade obstruction. Interval appearance of the gastric and proximal duodenal distension despite the interval appearance of the well-positioned enteric tube; interval fluid distension of the distal esophagus possibly related to the gastric distension and/or the enteric tube. Interval worsening of the ascites, but still no free air. 2. Interval subsegmental atelectasis in the lung bases likely related to the interval appearance of small bilateral pleural effusions. 3. Interval appearance of fluid and stranding in the left anterior pararenal fat including along the pancreatic tail and appearance of minimal stranding in the right anterior pararenal space, therefore clinical correlation recommended as to the likelihood of acute pancreatitis. Other findings detailed above.
--- NOTE | 2022-03-24 18:16 | PM.MISC ---
Miscellaneous Note Note: Patient has been in ICU since morning. She has received bolus fluid As per sepsis protocol of 30 cc/kg body weight. She is continuing D5 NS at 125 cc/h. Calvillo was placed. She had around 400cc of urine out. Patient has still has been complaining of abdominal pain but has been better controlled. She still not had a bowel movement. Patient started go to the bedside commode to have a bowel movement and had an episode of presyncope which resolved on going back to the bed. Intra-abdominal pressures were checked and they were found to be 4. X-ray KUB was appreciated not to have any air in the diaphragm. Patient's mean artery pressure has remained between 60-65. Repeat blood work showed a hemoglobin of 8, resolution of leukocytosis, creatinine worsened to 3.4, lactate worsening to more than 10. Care was discussed with Dr. Perez from surgery because of concerns for possible bowel ischemia. Plan: CT abdomen pelvis without contrast stat. Monitor blood transfusion. Continue with IV antibiotics and IV fluid resuscitation. We will plan for the OR as per CT results. The high probability of a clinically significant, sudden or life threatening deterioration of the patient's [abdomen, gi, renal] system(s) required my full and direct attention, intervention and personal management. The critical care time is as shown. This time is in addition to time spent performing any reported procedures but includes the following: [x] Data and vital sign review and interpretation [x] Patient assessment, examination and intervention [x] Documentation [x] Medication orders and management 50
--- NOTE | 2022-03-24 19:00 | PC.NURSE ---
CT Scan Patient BP noted to be low, Levophed gtt started per protocol before taking patient to CT.
[2022-03-24 19:28] LABS: Lactate (Lactic Acid level) 10.1 mmol/L (0.5-2.2)
[2022-03-24 21:27] LABS: Partial Thromboplastin Time 220.3 SECONDS (23.9-36.7)
--- NOTE | 2022-03-24 21:28 | PC.NURSE ---
New Orders Received Received orders from Dr. Smalls to update him regarding patient BP. Informed Dr. Smalls patient manual BP 60's over 40's, received orders to admin Albumin 25gm 12.5 % one bag.
--- NOTE | 2022-03-24 21:30 | PC.NURSE ---
Updated Physician Informed rn shift mgr hospitalist regarding the following changes in patient condition; -pulse ox not picking up sat and fingers remain cool despite wrapping them in warm blanket -forehead pulse ox-not picking up sat either -unable to palpate radial and pedal pulses at time -dopplered radial and posterior tibial pulses-faint
[2022-03-24 21:34] LABS: Lactic Acid level (Lactate) 9.2 mmol/L (0.5-2.2)
[2022-03-24] MEDS: albumin 12.5 GM/50 ML VIAL IV (22:13)
[2022-03-24] MEDS: sodium chloride 0.9% 1,000 ML 999 ML IV ×2 (22:16→23:17)
--- NOTE | 2022-03-24 22:54 | PC.PHAR ---
Pharmacokinetic dosing service Date: 03/24/22 Time: 2299 Objective: Patient: Delphine Appiah Floor: ICU-10 Age: 71 yo Serum creatinine: 3.4 mg/dL Height: 62.0 Inches Weight (kg): 53.615 Diagnosis: Relevant medical/social history: Cultures and sensitivities: Other labs: Assessment: IBW (kg): 50.10 Dosing wt(kg): 53.615 Estimated Creatinine clearance (ml/min): 11.7 CRCL method: Cockcroft and Gault using ibw(default). Drug selected: Vancomycin Loading dose (mg): 0 Vd (liters): 48.3 (factor used: 0.9 L/kg) Chidi (hr-1): 0.014 Half life (hrs): 49.51 Recommended dose: 1000 mg Interval: 72 hrs Infusion time (hrs): 1.5 Predicted peak (mcg/mL): 32.3 Predicted trough (mcg/mL): 12.04 Total body weight is being used for vancomycin dosing. Renal function is stable [ ] /unstable [ ] Recommendations: Give Vancomycin 1000 mg q 72 hrs with an expected Cpeak of 32.3 mcg/ml and an expected Ctrough of 12.04 mcg/ml Renal dosing of other antibiotics (review renal dosing of other medications and list guidelines here): Thank you for the consult, will continue to follow. Signature: [facility]
--- NOTE | 2022-03-24 23:30 | PC.NURSE ---
Physician at Bedside brush maker hospitalist at bedside, discussed central line placement due to lack of IV access and decline in patient condition. Physician discussed procedure with patient and family at bedside, all questions answered at this time. Signed consent placed in patient chart. Patient prepped for central line placement of the right femoral vein. Time out performed and signed consent in chart. Once central line placed, physician confirmed placement of line.
[2022-03-24 23:52] LABS: Hematocrit 17.6 % (37.0-47.0); Hemoglobin 5.2 g/dL (11.5-15.3)
[2022-03-25] VITALS (29 sets, daily range): BP systolic 55–118; BP diastolic 25–73; PULSE 72–77; RESP 16–31; TEMP 32.9–33.3; O2SAT 64–98
[2022-03-25 00:14] LABS: ABG PCO2 36.9 mmHg (35-45); Blood Gas Allen Test Pos; Blood Gas Sample Site Radial, right; Blood Gas Sample Type Arterial; HCO3 ABG 10.7 mmol/L (22-26); Oxygen Device ROOM AIR; PO2 ABG 89.4 mmHg (80.0-100.0)
[2022-03-25 00:15] LABS: ABG PH Result 7.07 (7.35-7.45)
--- NOTE | 2022-03-25 00:30 | PC.NURSE ---
Update Patient BP continues to drop despite being maxed per facility protocol on Levophed, received verbal orders from hospital to titrate Levophed up to 26 mcg/min to maintain MAP above 60.
[2022-03-25] MEDS: meropenem 1,000 MG in sodium chloride 0.9% (plus) 50 ML 100 MG IV (00:31)
[2022-03-25] MEDS: vancomycin 1,000 MG in sodium chloride 0.9% 250 ML 250 MG IV (00:31)
[2022-03-25] MEDS: sodium bicarbonate 150 MEQ in dextrose 5% 1,000 ML 100 MEQ IV (00:42)
--- NOTE | 2022-03-25 00:45 | P.PNCC_ITS ---
Critical Care Event Note The high probability of a clinically significant, sudden or life threatening deterioration of the patient's [] system(s) required my full and direct attention, intervention and personal management. The critical care time is as shown. This time is in addition to time spent performing any reported procedures but includes the following: [x] Data and vital sign review and interpretation [x] Patient assessment, examination and intervention [x] Documentation [x] Medication orders and management Critical Care Time Code activated: No Critical Care Time (min): 90 Additional information about critical care time: I was called by RN at around 8:30 PM to report that patient's blood pressure was 60/40 while on 10 of Levophed. Patient was assessed at bedside. Right femoral central line was placed. Right femoral arterial line was attempted to be placed, however was not successful. She received 2 L of IV fluid bolus, was already completing 1 unit of albumin infusion. Peripheral pulses were poorly palpable. Patient is alert awake oriented x3. She i shypothermic with t max 91.4. Levophed increased to 20 mics per minute. Stat H&H was repeated her hemoglobin has now dropped to 5.2. Additionally she has altered blood coming out of her NG tube which is currently to intermittent suction. Heparin drip has been on hold this evening due to a PTT of 290. 3 units of blood has been ordered, first of which is currently running at the time of this note. CT of the abdomen and pelvis repeated this evening showing signs of worsening interval small bowel obstruction, tight transitional zone in the central pelvis suggesting a high-grade obstruction. Interval appearance of the gastric and proximal duodenal distention despite interval appearance of a well-positioned enteric tube. No free air was noted on the CT. Interval appearance of fluid and stranding in the left anterior pararenal fat and along the pancreatic tail. Overall patient is currently in circulatory shock and multiorgan failure, likely a combination of septic shock and hemorrhagic shock given her hemoglobin has now trended down to 5.2. Likely source of bleeding is upper GI bleeding given return of altered blood in her NG which is to suction. Clinical picture with worsening distention, uptrending lactate could also be related to worsening bowel ischemia. Unfortunately CT of the abdomen pelvis was without contrast given her DEXTER. Abdominal compartment pressure currently at 4. General surgery updated. No current plans for ex lap given that clinically abdominal exam is unchanged per surgery. Discussed with family at bedside the interval worsening. We will attempt to transfer patient to a higher center given that she is going to need multidisciplinary approach for further treatment, most critical of which is going to be availability of 24/7 wood flour miller which is not currently available. In the upcoming hours she will also likely need GI services and possible endoscopy given GI bleeding, nephrology services, possibly initiation of CRRT, all of which would be best managed at a center with 24/7 critical care support. Abx broadened from cefepime/ flagyl to renally dosed meropenem/vancomycin At the time of this note, with above interventions, BP now at 83/40 mmHg, starting 2nd pressor with vasopressin Coding Level of Care Code Acute Switchboard Wirer for Shaista Ramos
--- NOTE | 2022-03-25 01:09 | PM.ACPR ---
Procedure/Consent Time out: Time Out Performed: Yes Consent: Consent for Procedure: Consent obtained from patient and Consent obtained from other (indicate) ( ) Acute Procedures Arterial Line: Additional comments: Art line attempted to be placed in right femoral under US guidance however was not successful. Patient has elevated PTT with resulting prolonged bleeding. Pressure maintained for over 10 min locally at site. Bleeding much improved but still with slow oozing for which Femstop has not been applied. No distal neurovascular deficits. Additional art line attempted to be placed by anesthesia surveyor oil well directional in B/L radial artery, however not successful. Further attempts deffered for now. Central Line Placement: Right Femoral: Time out performed: Yes Patient placed on monitor/pulse ox: Yes prep: mask, gown and gloves Central line prep: Chlorhexidine scrub Local anesthesia used: lidocaine 1% Ultrasound used for placement: Yes Central line lumen inserted: triple Post procedure: sutured in place, good blood return, all ports aspirated, flushed, capped and sterile dressing applied Patient tolerated procedure: well and no complications Complications: none Epistaxis Control: Time out performed: Yes
--- NOTE | 2022-03-25 01:14 | P.TS_ITS ---
Transfer Summary Providers Date of Admission: 03/23/22 08:02 Date of Discharge/Transfer: 03/25/22 Attending Provider at Admission: Jorge Smalls MD Attending Provider at Transfer: Jorge Smalls MD Transfering Provider (if different): Nataliya Huston Primary Care Provider: Shannan Brennan DO Transfer Plans: Anticipated date of transfer: 03/25/22 . Receiving Facility: [facility] . Receiving Provider: Library Media Assistant . Diagnoses at Discharge Discharge Diagnosis (1) Small bowel obstruction: Status: Acute (2) Lactic acidosis: Status: Acute (3) Leukocytosis: Status: Acute (4) Acute kidney injury: Status: Acute (5) Atrial fibrillation: Status: Acute Qualifiers: Atrial fibrillation type: paroxysmal Qualified Code(s): I48.0 - Paroxysmal atrial fibrillation (6) Mitral regurgitation: Status: Acute Qualifiers: Cardiac valve disease etiology: nonrheumatic Qualified Code(s): I34.0 - Nonrheumatic mitral (valve) insufficiency (7) Hypertension: Status: Acute Qualifiers: Hypertension type: essential hypertension Qualified Code(s): I10 - Essential (primary) hypertension (8) Hyperlipemia: Status: Acute Qualifiers: Hyperlipidemia type: mixed hyperlipidemia Qualified Code(s): E78.2 - Mixed hyperlipidemia (9) Mild cognitive impairment: Status: Acute (10) GI bleed: Status: Acute Reason for Visit Reason for Visit n/v , possible food poision Brief History: Taken from h&p: Delphine Appiah is a 71 year old female with history of hypertension, atrial fibrillation, mitral regurgitation, hyperlipidemia, mild cognitive disability presented to the ER on 03/23/22 because of abdominal pain which woke her up from her sleep along with multiple episodes of nausea and vomiting.? Patient states she was at baseline health till last night when she went to sleep.? As per the patient she has been having her regular bowel movements which are usually few pellets few times a week.? As per the patient takes Imodium very regularly.? Patient confirms taking Imodium regularly for ooze from her anuswhich seems to help her.? She Last took Imodium at least 2 tablets last week.? States she is still passing flatus.? Complaining of abdominal pain.? Ab dominal pain is generalized mostly in the upper area radiating to back.? Denies any melena, hematochezia, hemoptysis or hematemesis.? Her last colonoscopy was in August [address] Wood concerning for small intestine diverticulosis. CT abdomen pelvis done in the ER is concerning for small bowel obstruction. Hospital Course Hospital Course Patient was admitted to the hospital on March 23, 2022 with chief complaints of abdominal pain nausea and vomiting and was found to have a small bowel obstruction. There were multiple loops of dilated small bowel in the pelvis with normal caliber of the more distal ileum. She was started on medical management with bowel rest, n.p.o., IV fluids, NG tube to low intermittent suction. Patient was evaluated by surgery on the morning of 03/24/2022 1 continued on medical management. Through the day on 03 24 patient's condition continued to worsen. She complained of worsening abdominal pain. Her lactate continued to trend up from 7 up to 11 this evening. Also developed acute kidney injury. Upon presentation her creatinine was at 0.9, by the evening it is up to 3.4. Her urine output through the day has only been 500 cc. She does have a history of atrial fibrillation, her home dose of Pradaxa had been discontinued and patient had been on a heparin drip. Her last PTT at 8 PM was ~250 for which heparin drip is currently on hold. She was transferred to ICU with these acute changes and new events. Starting at around 8 PM patient started to become hemodynamically unstable, blood pressure dropped down to 60/40, she was started on pressor support with Levophed. At the time of transfer her pressor requirement had been escalated and she is currently on Levophed 24 mics and vasopressin 0.06. Hemoglobin dropped to 5.2 from 12.5 upon admission. There is coffee-ground blood being currently suctioned out of her NG tube. 3 units of packed red blood cell transfusion has been ordered, of which two have been completed at the time of transfer. 2 units of FFP additionally ordered, awaiting being thawed. Protonix infusion is being started. She has been on protonix 40mg IVP q12h thus far. CT abdomen/pelvis negative for free air but showing worsening distension in spite of NGT in place. Detailed report below. Patient is currently in circulatory shock, likely a combination of septic shock from SBO, possible bowel ischemia. Abx broadened from cefepime/flagyl on admission to Meropenem/Vancomycin this evening. ABG 7.07/36.9/po2 89.4, Hco3 10.7 on RA. Started on bicarb infusion additionally. General surgery updated with change in clinical status. Patient is being transferred to higher center given that she is going to need multidisciplinary support for further treatment, most critical of which is going to be availability of 24/7 customer consulting manager which is not currently available here at [facility].? In the upcoming hours she will also need general surgery, GI services and possible endoscopy given GI bleeding, nephrology services, possibly initiation of CRRT, all of which would be best managed at a center with 24/7 critical care support. At time of transfer : Drips: Levophed 24, vasopressin 0.06, Protonix 8mg/hr, Na bicarb @ 100cc/hr Lines: Right femoral CVC , NGT to low intermittent suction BP at transfer: 118/47, MAP 70, saturating 100% on RA Physical Exam Narrative: General: pale, cold peripheries, hypothermic, elderly frail lady. Alert, awake and oriented x 3. HEENT: PERRLA, pupils bilaterally equal and reactive, pallors ++ Chest: Normal vesicular breath sounds, no added sounds, equal good air entry bilaterally CVS: S1-S2 regular Abdomen: Soft, mildly distended, tender to palpation periumbilical area Neuro: No focal deficits, no facial deformity, AO x3, power 5/5 in all limbs TS Data Studies Completed and Pending Pending at discharge Category Date Time Status ABG ONLY [Arterial Blood Gas W/O Coox] Stat Lab 03/25/22 00:03 Results Blood Culture Stat Lab 03/24/22 23:20 Results COVID [SARS Covid-2 Antigen] Stat Lab 03/25/22 00:42 Uncollected Complete Blood Count w/Auto AM LABS Lab 03/25/22 04:00 Ordered Comprehensive Metabolic Panel AM LABS Lab 03/25/22 04:00 Ordered Lactic Sepsis W/Reflex AM LABS Lab 03/25/22 04:00 Ordered Leukocyte Reduced RBC Stat Lab 03/24/22 20:25 Results Platelet Count Q2D Lab 03/26/22 04:00 Ordered Platelet Count Q2D Lab 03/28/22 04:00 Ordered Type and Screen Stat Lab 03/24/22 20:25 Results Labs from last 24 hours 03/25/22 03/24/22 03/24/22 00:03 23:20 20:25 WBC RBC Hgb 5.2 L* D Hct 17.6 L* D MCV MCH MCHC RDW Plt Count MPV Neut % (Auto) Lymph % (Auto) [place] % (Auto) Eos % (Auto) Baso % (Auto) Neut # (Auto) Lymph # (Auto) [place] # (Auto) Eos # (Auto) Baso # (Auto) Nucleated RBC % (auto) Nucleated RBCs # APTT Specimen Type Arterial Sample Site Radial, right ABG pH 7.07 L* ABG pCO2 36.9 ABG pO2 89.4 ABG HCO3 10.7 L ABG Base Excess Pending Missael Test Pos Hematocrit Pending O2 Delivery Device Room air Director Internal Control ID ellpe Sodium Potassium Chloride Carbon Dioxide Anion Gap BUN Creatinine GFR Calculation Glucose Estimat Average Glucose Hemoglobin A1c Calculated Osmolality Lactic Acid Lactic Acid (Sepsis) Lactate Calcium Phosphorus Magnesium Total Bilirubin AST ALT Alkaline Phosphatase Total Protein Albumin Globulin Triglycerides Cholesterol LDL Cholesterol, Calc Total VLDL Cholesterol HDL Cholesterol Cholesterol/HDL Ratio Blood Type B Positive Rho(D) Type Positive Antibody Screen Negative Crossmatch See Detail 03/24/22 03/24/22 03/24/22 20:25 20:25 18:25 WBC RBC Hgb Hct MCV MCH MCHC RDW Plt Count MPV Neut % (Auto) Lymph % (Auto) [place] % (Auto) Eos % (Auto) Baso % (Auto) Neut # (Auto) Lymph # (Auto) [place] # (Auto) Eos # (Auto) Baso # (Auto) Nucleated RBC % (auto) Nucleated RBCs # APTT 220.3 H* Specimen Type Sample Site ABG pH ABG pCO2 ABG pO2 ABG HCO3 ABG Base Excess Missael Test Hematocrit O2 Delivery Device Director Internal Control ID Sodium Potassium Chloride Carbon Dioxide Anion Gap BUN Creatinine GFR Calculation Glucose Estimat Average Glucose Hemoglobin A1c Calculated Osmolality Lactic Acid Lactic Acid (Sepsis) 9.2 H* Lactate 10.1 H* Calcium Phosphorus Magnesium Total Bilirubin AST ALT Alkaline Phosphatase Total Protein Albumin Globulin Triglycerides Cholesterol LDL Cholesterol, Calc Total VLDL Cholesterol HDL Cholesterol Cholesterol/HDL Ratio Blood Type Rho(D) Type Antibody Screen Crossmatch 03/24/22 03/24/22 03/24/22 16:42 16:42 16:42 WBC 7.0 RBC 2.49 L Hgb 8.0 L Hct 27.0 L MCV 108.4 H D MCH 32.1 MCHC 29.6 L D RDW 14.1 Plt Count 144 MPV 11.0 H Neut % (Auto) 76.2 Lymph % (Auto) 11.0 [place] % (Auto) 12.1 Eos % (Auto) 0.0 Baso % (Auto) 0.1 Neut # (Auto) 5.35 Lymph # (Auto) 0.8 [place] # (Auto) 0.9 Eos # (Auto) 0.0 Baso # (Auto) 0.0 Nucleated RBC % (auto) 0 Nucleated RBCs # 0.0 APTT Specimen Type Sample Site ABG pH ABG pCO2 ABG pO2 ABG HCO3 ABG Base Excess Missael Test Hematocrit O2 Delivery Device Director Internal Control ID Sodium 139 Potassium 4.0 Chloride 105 Carbon Dioxide 13 L Anion Gap 25.0 H BUN 50 H Creatinine 3.4 H GFR Calculation Not Reportable Glucose 114 Estimat Average Glucose Hemoglobin A1c Calculated Osmolality 302 H Lactic Acid 11.5 H* Lactic Acid (Sepsis) Lactate Calcium 7.9 L Phosphorus Magnesium Total Bilirubin 0.2 AST 50 H ALT 23 Alkaline Phosphatase 53 Total Protein 4.6 L D Albumin 2.8 L Globulin 1.8 Triglycerides Cholesterol LDL Cholesterol, Calc Total VLDL Cholesterol HDL Cholesterol Cholesterol/HDL Ratio Blood Type Rho(D) Type Antibody Screen Crossmatch 03/24/22 03/24/22 03/24/22 10:52 09:58 05:28 WBC RBC Hgb Hct MCV MCH MCHC RDW Plt Count MPV Neut % (Auto) Lymph % (Auto) [place] % (Auto) Eos % (Auto) Baso % (Auto) Neut # (Auto) Lymph # (Auto) [place] # (Auto) Eos # (Auto) Baso # (Auto) Nucleated RBC % (auto) Nucleated RBCs # APTT Specimen Type Sample Site ABG pH ABG pCO2 ABG pO2 ABG HCO3 ABG Base Excess Missael Test Hematocrit O2 Delivery Device Director Internal Control ID Sodium 135 L Potassium 4.6 Chloride 99 Carbon Dioxide 16 L Anion Gap 24.6 H BUN 45 H Creatinine 2.9 H GFR Calculation Not Reportable Glucose 194 H Estimat Average Glucose 100 Hemoglobin A1c 5.1 Calculated Osmolality 297 H Lactic Acid Lactic Acid (Sepsis) Lactate 7.4 H* Calcium 9.2 Phosphorus Magnesium Total Bilirubin AST ALT Alkaline Phosphatase Total Protein Albumin Globulin Triglycerides Cholesterol LDL Cholesterol, Calc Total VLDL Cholesterol HDL Cholesterol Cholesterol/HDL Ratio Blood Type Rho(D) Type Antibody Screen Crossmatch 03/24/22 03/24/22 05:28 05:28 WBC 14.2 H RBC 3.37 L Hgb 10.9 L Hct 33.6 L MCV 99.7 H MCH 32.3 MCHC 32.4 RDW 13.8 Plt Count 197 MPV 10.7 H Neut % (Auto) 81.9 Lymph % (Auto) 5.2 [place] % (Auto) 12.4 Eos % (Auto) 0.0 Baso % (Auto) 0.2 Neut # (Auto) 11.65 H Lymph # (Auto) 0.7 L [place] # (Auto) 1.8 H Eos # (Auto) 0.0 Baso # (Auto) 0.0 Nucleated RBC % (auto) 0 Nucleated RBCs # 0.0 APTT Specimen Type Sample Site ABG pH ABG pCO2 ABG pO2 ABG HCO3 ABG Base Excess Missael Test Hematocrit O2 Delivery Device Director Internal Control ID Sodium 138 Potassium 5.0 Chloride 103 Carbon Dioxide 19 L Anion Gap 21.0 H BUN 36 H Creatinine 2.4 H GFR Calculation Not Reportable Glucose 192 H Estimat Average Glucose Hemoglobin A1c Calculated Osmolality 300 H Lactic Acid Lactic Acid (Sepsis) Lactate Calcium 9.2 Phosphorus 5.7 H Magnesium 2.4 H Total Bilirubin 0.3 AST 18 ALT 15 Alkaline Phosphatase 57 Total Protein 6.5 L Albumin 3.8 Globulin 2.7 Triglycerides 66 Cholesterol 144 LDL Cholesterol, Calc 55 Total VLDL Cholesterol 13 HDL Cholesterol 76 Cholesterol/HDL Ratio 1.89 Blood Type Rho(D) Type Antibody Screen Crossmatch Completed Studies During Hospitalization Category Date Time Status CT abdomen pelvis wo con [id number] Stat Cat Scan 03/24/22 18:[address] kidney stone [id number] Stat Cat Scan 03/23/22 03:42 Completed XR KUB [id number] Routine Exams 03/24/22 08:00 Completed XR chest 1V portable [id number] Stat Exams 03/23/22 03:18 Completed XR chest 1V portable [id number] Stat Exams 03/23/22 08:21 Completed XR chest 1V portable [id number] Stat Exams 03/23/22 16:36 Completed Laboratory Last Values WBC 7.0 10^3/uL (4.0-10.0) 03/24/22 16:42 RBC 2.49 10^6/uL (4.1-5.3) L 03/24/22 16:42 Hgb 5.2 g/dL (11.5-15.3) L* D 03/24/22 23:20 Hct 17.6 % (37.0-47.0) L* D 03/24/22 23:20 MCV 108.4 fl (81-99) H D 03/24/22 16:42 MCH 32.1 pg (28.0-34.0) 03/24/22 16:42 MCHC 29.6 g/dL (30.0-36.0) L D 03/24/22 16:42 RDW 14.1 % (12.1-15.1) 03/24/22 16:42 Plt Count 144 10^3/cmm (130-400) 03/24/22 16:42 MPV 11.0 fL (7.4-10.4) H 03/24/22 16:42 Neut % (Auto) 76.2 % 03/24/22 16:42 Lymph % (Auto) 11.0 % 03/24/22 16:42 [place] % (Auto) 12.1 % 03/24/22 16:42 Eos % (Auto) 0.0 % 03/24/22 16:42 Baso % (Auto) 0.1 % 03/24/22 16:42 Neut # (Auto) 5.35 10^3/uL (1.8-7.7) 03/24/22 16:42 Lymph # (Auto) 0.8 10^3/uL (0.8-4.8) 03/24/22 16:42 [place] # (Auto) 0.9 10^3/uL (0.2-0.9) 03/24/22 16:42 Eos # (Auto) 0.0 10^3/uL (0.0-0.8) 03/24/22 16:42 Baso # (Auto) 0.0 10^3/uL (0.0-0.1) 03/24/22 16:42 Nucleated RBC % (auto) 0 % 03/24/22 16:42 Nucleated RBCs # 0.0 /100WBC 03/24/22 16:42 APTT 220.3 SECONDS (23.9-36.7) H* 03/24/22 20:25 Specimen Type Arterial 03/25/22 00:03 Sample Site Radial, right 03/25/22 00:03 ABG pH 7.07 (7.35-7.45) L* 03/25/22 00:03 ABG pCO2 36.9 mmHg (35-45) 03/25/22 00:03 ABG pO2 89.4 mmHg (80.0-100.0) 03/25/22 00:03 ABG HCO3 10.7 mmol/L (22-26) L 03/25/22 00:03 Missael Test Pos 03/25/22 00:03 O2 Delivery Device Room air 03/25/22 00:03 Director Internal Control ID ellpe 03/25/22 00:03 Sodium 139 mmol/L (136-145) 03/24/22 16:42 Potassium 4.0 mmol/L (3.5-5.1) 03/24/22 16:42 Chloride 105 mmol/L (98-107) 03/24/22 16:42 Carbon Dioxide 13 mmol/L (22-29) L 03/24/22 16:42 Anion Gap 25.0 (5-19) H 03/24/22 16:42 BUN 50 mg/dL (8-23) H 03/24/22 16:42 Creatinine 3.4 mg/dL (0.5-0.9) H 03/24/22 16:42 GFR Calculation Not Reportable 03/24/22 16:42 Glucose 114 mg/dL (65-115) 03/24/22 16:42 Estimat Average Glucose 100 03/24/22 05:28 Hemoglobin A1c 5.1 % (4.0-6.0) 03/24/22 05:28 Calculated Osmolality 302 mOsm/kg (285-295) H 03/24/22 16:42 Lactic Acid 11.5 mmol/L (0.5-2.2) H* 03/24/22 16:42 Lactic Acid (Sepsis) 9.2 mmol/L (0.5-2.2) H* 03/24/22 20:25 Lactate 10.1 mmol/L (0.5-2.2) H* 03/24/22 18:25 Calcium 7.9 mg/dL (8.5-10.5) L 03/24/22 16:42 Phosphorus 5.7 mg/dL (2.5-4.5) H 03/24/22 05:28 Magnesium 2.4 mg/dL (1.7-2.3) H 03/24/22 05:28 Iron 20 ug/dL (37-145) L 03/23/22 12:51 TIBC 300 mcg/dl 03/23/22 12:51 % Saturation 6.6 % (20-50) L 03/23/22 12:51 Unsat Iron Binding 280 ug/dL (112-347) 03/23/22 12:51 Total Bilirubin 0.2 mg/dL (0.15-1.2) 03/24/22 16:42 AST 50 U/L (0-32) H 03/24/22 16:42 ALT 23 U/L (0-33) 03/24/22 16:42 Alkaline Phosphatase 53 U/L (35-105) 03/24/22 16:42 Total Protein 4.6 g/dL (6.6-8.7) L D 03/24/22 16:42 Albumin 2.8 g/dL (3.5-5.2) L 03/24/22 16:42 Globulin 1.8 g/dL (1.3-4.6) 03/24/22 16:42 Triglycerides 66 mg/dL (0-150) 03/24/22 05:28 Cholesterol 144 mg/dL (0-200) 03/24/22 05:28 LDL Cholesterol, Calc 55 mg/dL (50-129) 03/24/22 05:28 Total VLDL Cholesterol 13 mg/dL (0-30) 03/24/22 05:28 HDL Cholesterol 76 mg/dL (60-100) 03/24/22 05:28 Cholesterol/HDL Ratio 1.89 mg/dL (0.0-4.40) 03/24/22 05:28 Vitamin B12 804 pg/mL (232-1245) 03/23/22 12:51 Folate > 20.0 ng/mL (4.8-37.3) 03/23/22 12:51 Procalcitonin 0.08 ng/mL (0-0.5) 03/23/22 12:51 TSH 2.43 uIU/mL (0.27-4.20) 03/23/22 12:51 Urine Color Yellow (Yellow) 03/23/22 03:23 Urine Appearance Hazy (CLEAR) A 03/23/22 03:23 Urine pH 8 (5-7) H 03/23/22 03:23 Ur Specific [place] 1.010 (1.005-1.030) 03/23/22 03:23 Urine Protein Neg (Negative) 03/23/22 03:23 Urine Glucose (UA) Norm (Normal) 03/23/22 03:23 Urine Ketones Negative (Negative) 03/23/22 03:23 Urine Blood 2+ (Negative) H 03/23/22 03:23 Urine Nitrate Negative (Negative) 03/23/22 03:23 Urine Bilirubin Neg (Negative) 03/23/22 03:23 Prot Sulfosalicylic Acd Negative (Negative) 03/23/22 03:23 Urine Urobilinogen Norm mg/dL (Negative) 03/23/22 03:23 Ur Leukocyte Esterase Negative (Negative) 03/23/22 03:23 Urine RBC None /hpf (0-2) 03/23/22 03:23 Urine WBC None /hpf (0-5) 03/23/22 03:23 Ur Squamous Epith Cells None /hpf (0-5) 03/23/22 03:23 Amorphous Sediment 4+ /hpf 03/23/22 03:23 Urine Bacteria None /hpf (NONE) 03/23/22 03:23 Blood Type B Positive 03/24/22 20:25 Rho(D) Type Positive 03/24/22 20:25 Antibody Screen Negative 03/24/22 20:25 Crossmatch See Detail 03/24/22 20:25 Radiology Impressions Chest X-Ray 03/23/22 16:36 IMPRESSION: 1. Enteric tube tip below the diaphragm in the region of the gastric bubble. 2. Lungs are clear. KUB X-Ray 03/24/22 08:00 IMPRESSION: 1. Bowel gas pattern is nonspecific. 2. Moderate amount stool within the large bowel. 3. Soft tissue prominence in the pelvis either a distended bladder or loops of fluid-filled small bowel. Abdomen/Pelvis CT 03/24/22 18:11 IMPRESSION: 1. Interval worsening of the small bowel obstruction; tight transitional zone in the central pelvis still probably evident suggesting a high grade obstruction. Interval appearance of the gastric and proximal duodenal distension despite the interval appearance of the well-positioned enteric tube; interval fluid distension of the distal esophagus possibly related to the gastric distension and/or the enteric tube. Interval worsening of the ascites, but still no free air. 2. Interval subsegmental atelectasis in the lung bases likely related to the interval appearance of small bilateral pleural effusions. 3. Interval appearance of fluid and stranding in the left anterior pararenal fat including along the pancreatic tail and appearance of minimal stranding in the right anterior pararenal space, therefore clinical correlation recommended as to the likelihood of acute pancreatitis. Other findings detailed above. 03/25/22 00:03 ABG pH 7.07 L* ABG pCO2 36.9 ABG pO2 89.4 ABG HCO3 10.7 L Recent Clincial Data Last Vital Signs Temp 91.8 F L 03/25/22 01:08 Pulse 72 03/25/22 01:08 Resp 28 H 03/25/22 01:08 BP 82/42 03/25/22 01:08 Pulse Ox 100 03/24/22 16:40 O2 Del Method 03/24/22 11:01 Vital Signs Temp Pulse Resp BP Pulse Ox 03/25/22 01:08 91.8 F L 72 28 H 82/42 03/25/22 01:05 76 24 H 82/25 03/25/22 00:05 91.8 F L 28 H 70/37 03/24/22 16:45 88 109/53 03/24/22 16:40 87 109/53 100 03/24/22 16:35 86 109/53 03/24/22 16:30 101 H 104/45 03/24/22 16:25 106 H 104/45 03/24/22 16:20 104/45 03/24/22 16:15 91 82/63 03/24/22 16:10 89 82/63 99 03/24/22 16:05 93 82/63 93 03/24/22 16:00 95 90/66 92 03/24/22 15:55 97 90/66 93 03/24/22 15:50 92 90/66 92 03/24/22 15:45 94 79/52 94 03/24/22 15:40 93 79/52 100 03/24/22 15:35 95 79/52 03/24/22 15:30 96 93/56 92 03/24/22 15:25 98 93/56 03/24/22 15:20 95 67/37 03/24/22 15:15 97 64/49 03/24/22 15:10 97 03/24/22 15:05 100 03/24/22 15:00 98.3 F 100 83/52 96 03/24/22 14:55 101 H 83/52 03/24/22 14:50 99 83/52 03/24/22 14:45 103 H 79/59 03/24/22 14:40 103 H 79/59 03/24/22 14:35 105 H 79/59 03/24/22 14:30 104 H 21 H 85/61 03/24/22 14:25 104 H 03/24/22 14:20 109 H 03/24/22 14:15 109 H 03/24/22 14:10 110 H 03/24/22 14:05 111 H 19 H 03/24/22 14:00 108 H 19 H 69/50 03/24/22 13:55 110 H 70/55 03/24/22 13:50 111 H 16 69/50 100 03/24/22 13:45 110 H 20 H 80/56 03/24/22 13:40 111 H 80/56 99 03/24/22 13:35 112 H 15 70/51 99 03/24/22 13:30 117 H 03/24/22 13:25 116 H 99 03/24/22 13:20 115 H 98 03/24/22 13:15 115 H 89/51 Intake & Output/Weight 03/22/22 03/23/22 03/24/22 03/25/22 07:59 07:59 06:59 06:59 Intake Total 5565.717 / 5565.717 Output Total 550 / 550 Balance 5015.717 / 5015.717 Weight Vitals Last Vital Signs Temp 91.8 F L 03/25/22 01:08 Pulse 72 03/25/22 01:08 Resp 28 H 03/25/22 01:08 BP 82/42 03/25/22 01:08 Pulse Ox 100 03/24/22 16:40 O2 Del Method 03/24/22 11:01 TS Medications Medications Heparin Sodium (Porcine) (Heparin 5,000 Unit/Ml Inj 1 Ml) 0 unit IV PRN PRN; Protocol PRN Reason: Heparin weight-base protocol Hydromorphone HCl (Hydromorphone 1 Mg/Ml Inj 1 Ml) 0.2 mg IVP Q4H PRN PRN Reason: ps 6-0 Last Admin: 03/24/22 18:12 Dose: 0.2 mg Dextrose/Sodium Chloride (Dextrose 5%-Sod Chloride 0.9%) 1,000 mls @ 125 mls/hr IV .Q8H [facility] Last Admin: 03/24/22 18:14 Dose: 125 mls/hr Heparin Sodium/Sodium Chloride (Heparin Drip) 25,000 unit in 500 mls @ 0 mls/hr IV .Q0M [facility]; Protocol Last Titration: 03/25/22 00:33 Dose: Infused Meropenem 1,000 mg/ Sodium (Chloride) 50 mls @ 100 mls/hr IV Q24H [facility] Last Admin: 03/25/22 00:31 Dose: 100 mls/hr Vancomycin HCl 1,000 mg/ (Sodium Chloride) 250 mls @ 250 mls/hr IV Q72H [facility] Last Admin: 03/25/22 00:31 Dose: 250 mls/hr Sodium Bicarbonate 150 meq/ (Dextrose) 1,150 mls @ 100 mls/hr IV .[id number] [facility] Last Admin: 03/25/22 00:42 Dose: 100 mls/hr Vasopressin 40 unit/ Sodium (Chloride) 40 mls @ 0.03 mls/min IV CONT [facility] Last Admin: 03/25/22 00:58 Dose: 0.03 mls/min Norepinephrine Bitartrate 8 mg (/ Dextrose) 508 mls @ 0 mls/hr IV .Q0M [facility]; Protocol Levothyroxine Sodium (Levothyroxine 100 Mcg Sdv) 25 mcg IVP DAILY [facility] Metoprolol Tartrate (Metoprolol Tartrate 1 Mg/1 Ml Sdv 5 Ml) 5 mg IVP Q6H PRN PRN Reason: HR more than 100 bpm Ondansetron HCl (Ondansetron 2 Mg/Ml Sdv 2 Ml) 4 mg IVP Q8H PRN PRN Reason: vomiting, or N/V if npo Last Admin: 03/24/22 09:42 Dose: 4 mg Pantoprazole Sodium (Pantoprazole 40 Mg Sdv) 40 mg IVP Q24H [facility] Last Admin: 03/24/22 16:12 Dose: 40 mg Discontinued Medications Bisacodyl (Bisacodyl 10 Mg Supp) 10 mg VT ONCE ONE Stop: 03/24/22 11:05 Last Admin: 03/24/22 12:22 Dose: 10 mg Donepezil HCl (Donepezil 5 Mg Tablet) 5 mg PO BID [facility] Last Admin: 03/24/22 18:03 Dose: Not Given Enoxaparin Sodium (Enoxaparin 60 Mg/0.6 Ml Syringe) 50 mg SUBCUT Q12H [facility] Last Admin: 03/24/22 01:25 WOUND/OSTOMY NURSE Dose: Not Given Hydromorphone HCl (Hydromorphone 1 Mg/Ml Inj 1 Ml) 0.5 mg IVP ONCE ONE Stop: 03/23/22 03:21 Last Admin: 03/23/22 03:28 Dose: 0.5 mg Hydromorphone HCl (Hydromorphone 1 Mg/Ml Inj 1 Ml) 0.5 mg IVP ONCE ONE Stop: 03/23/22 06:25 Last Admin: 03/23/22 06:29 Dose: 0.5 mg Sodium Chloride (Sodium Chloride 0.9%) 1,000 mls @ 999 mls/hr IV .Q1H1M ONE Stop: 03/23/22 04:35 Last Infusion: 03/23/22 07:26 Dose: Infused Dextrose/Sodium Chloride (Dextrose 5%-Sod Chloride 0.9%) 1,000 mls @ 50 mls/hr IV .Q20H [facility] Stop: 03/24/22 07:59 Last Infusion: 03/24/22 08:21 Dose: Infused Cefepime HCl 1,000 mg/ Sodium (Chloride) 50 mls @ 100 mls/hr IV Q24H [facility]; Protocol Last Infusion: 03/24/22 11:43 Dose: Infused Metronidazole (Flagyl Iv) 500 mg in 100 mls @ 100 mls/hr IV Q8H [facility]; Protocol Last Admin: 03/24/22 20:55 Dose: 100 mls/hr Sodium Chloride (Sodium Chloride 0.9%) 500 mls @ 999 mls/hr IV .Q31M ONE Stop: 03/24/22 12:14 Sodium Chloride (Sodium Chloride 0.9%) 500 mls @ 999 mls/hr IV .Q31M [facility] Last Infusion: 03/24/22 19:01 Dose: Infused Norepinephrine Bitartrate 4 mg (/ Dextrose) 254 mls @ 0 mls/hr IV .Q0M [facility]; Protocol Last Admin: 03/24/22 19:00 Dose: 2 mcg/min, 7.62 mls/hr Albumin Human (Albumin) 12.5 gm in 50 mls @ 60 mls/hr IV ONCE ONE Stop: 03/24/22 22:42 Last Admin: 03/24/22 22:13 Dose: 60 mls/hr Sodium Chloride (Sodium Chloride 0.9%) 1,000 mls @ 999 mls/hr IV .Q1H1M [facility] Stop: 03/25/22 00:00 Last Admin: 03/24/22 23:17 Dose: 999 mls/hr Sodium Chloride (Sodium Chloride 0.9%) 1,000 mls @ 999 mls/hr IV .Q1H1M [facility] Stop: 03/25/22 00:15 Last Admin: 03/24/22 22:15 Dose: Not Given Sodium Chloride (Sodium Chloride 0.9% (100 Ml)) Confirm Administered Dose 100 mls @ as directed .ROUTE .ST-MED ONE Stop: 03/24/22 23:56 Ketorolac Tromethamine (Ketorolac 30 Mg/Ml Inj) 15 mg IVP Q6H [facility] Stop: 03/29/22 11:59 Ketorolac Tromethamine (Ketorolac 30 Mg/Ml Inj) 15 mg IVP Q12H [facility] Stop: 03/29/22 11:44 Magnesium Hydroxide (Magnesium Hydroxide 30 Ml Udc) 30 ml PO ONCE ONE; Protocol Stop: 03/23/22 11:53 Last Admin: 03/23/22 12:22 Dose: 30 ml Memantine (Memantine 5 Mg Tablet) 10 mg PO BID [facility] Last Admin: 03/24/22 18:03 Dose: Not Given Metoprolol Tartrate (Metoprolol Tartrate 1 Mg/1 Ml Sdv 5 Ml) 5 mg IVP Q4H PRN PRN Reason: HR more than 110 bpm Metoprolol Tartrate (Metoprolol Tartrate 1 Mg/1 Ml Sdv 5 Ml) 5 mg IVP Q6H [facility] Last Admin: 03/24/22 11:01 Dose: Not Given Midazolam HCl (Midazolam 1 Mg/Ml Inj 2 Ml) 1 mg IVP ONCE ONE Stop: 03/23/22 08:01 Last Admin: 03/23/22 08:10 Dose: 1 mg Morphine Sulfate (Morphine 4 Mg/Ml Sdv 1 Ml) 1 mg IVP Q4H PRN PRN Reason: SEVERE PAIN Last Admin: 03/24/22 08:39 Dose: 1 mg Ondansetron HCl (Ondansetron 2 Mg/Ml Sdv 2 Ml) 4 mg IVP ONCE ONE Stop: 03/23/22 03:21 Last Admin: 03/23/22 03:28 Dose: 4 mg Ondansetron HCl (Ondansetron 2 Mg/Ml Sdv 2 Ml) 4 mg IVP ONCE ONE Stop: 03/23/22 07:18 Last Admin: 03/23/22 07:26 Dose: 4 mg Allergies Penicillins Allergy (Verified 10/20/21 17:23) itching, rash Sulfa (Sulfonamide Antibiotics) Allergy (Verified 10/20/21 17:23) pt does not remember the reaction Home Medications dicyclomine 10 mg capsule 10 mg PO DAILY PRN Pain 11/10/19 [History Confirmed 03/23/22] levothyroxine 50 mcg tablet 50 mcg PO DAILY 11/10/19 [History Confirmed 03/23/22] nitroglycerin 0.4 mg sublingual tablet (Nitrostat) 0.4 mg sublingual Q5M PRN Pain 11/10/19 [History Confirmed 03/23/22] memantine 10 mg tablet 10 mg PO BID #60 tabs 07/12/20 [Rx Confirmed 03/23/22] metoprolol succinate 50 mg tablet,extended release 24 hr 50 mg PO BID #180 tabs 04/14/21 [Rx Confirmed 03/23/22] amlodipine 10 mg tablet 10 mg PO DAILY #100 tabs 09/20/21 [Rx Confirmed 03/23/22] dabigatran etexilate 75 mg capsule (Pradaxa) 75 mg PO BID 03/23/22 [History Confirmed 03/23/22] donepezil 5 mg tablet (Aricept) 5 mg PO BID 03/23/22 [History Confirmed 03/23/22] ezetimibe 10 mg-simvastatin 40 mg tablet 1 tab PO DAILY 03/23/22 [History Confirmed 03/23/22] Discharge Plan Discharge Patient Disposition: Xfer Other Condition: Stable Prescriptions: No Action dicyclomine 10 mg capsule 10 mg PO DAILY PRN (Reason: Pain) levothyroxine 50 mcg tablet 50 mcg PO DAILY nitroglycerin [Nitrostat] 0.4 mg tablet, sublingual 0.4 mg SUBLINGUAL Q5M PRN (Reason: Pain) Rx Instructions: do not exceed 3 doses per episode memantine 10 mg tablet 10 mg PO BID Qty: 60 3RF metoprolol succinate 50 mg tablet extended release 24 hr 50 mg PO BID Qty: 180 3RF Rx Instructions: *Dose Increased amlodipine 10 mg tablet 10 mg PO DAILY Qty: 100 3RF Aricept 5 mg tablet 5 mg PO BID ezetimibe-simvastatin 10-40 mg tablet 1 tab PO DAILY Pradaxa 75 mg capsule 75 mg PO BID Discharge Orders: Transfer Out of Facility (Order); Ordered 03/25/22 Ordered By: Nataliya Huston Referrals: Shannan Brennan DO [Primary Care Provider] - Patient Instructions: Opioid Safety Transfer Attestations Time Spent in Transfer Care: critical care time Critical Care Time (min): 120 Quality Metrics Clinical Quality Measures [ No reported AMI, CVA or VTE this stay] Coding Level of Care Code Acute Director Of Field Service for [facility] Fwd Diagnoses Small bowel obstruction K56.609 Lactic acidosis E87.20 Leukocytosis D72.829 Acute kidney injury N17.9 Atrial fibrillation I48.0 Atrial fibrillation type: paroxysmal Mitral regurgitation I34.0 Cardiac valve disease etiology: nonrheumatic Hypertension I10 Hypertension type: essential hypertension Hyperlipemia E78.2 Hyperlipidemia type: mixed hyperlipidemia Mild cognitive impairment G31.84 GI bleed K92.2
[2022-03-25] MEDS: norepinephrine 8 MG in dextrose 5 % 500 ML 91.44 MG IV (01:23)
[2022-03-25] MEDS: pantoprazole 40 mg SDV 80 MG IVP (01:58)
--- NOTE | 2022-03-25 02:30 | PC.NURSE ---
Transfer Out of Facility Patient to be transferred out of facility per physician orders, accepted at [facility] bed #[id number]. Accepting physician Dr. Balbuena, and nurse taking over care Catherine De Los Santos Called report to Catherine, answered all questions at this time. Upon [facility] arrival to unit report given to flight nurse, all questions answered. At time of transfer patient is alert/oriented x4, on room air, with a rectal temp of 91 degrees Fahrenheit. Wrapped patient in warm blankets for flight to try and maintain temperature. Levophed, Vaso, Sodium Bicarb and Protonic gtts infusing at time of transfer. One unit blood and two units FFP sent with flight crew to be finished en route-unable to finish administering blood products before patient was transferred. Patient and daughter took all patient belongings home with them, no belongings were transferred with patient onto helicopter.
[2022-03-25] MEDS: pantoprazole 40 MG in sodium chloride 0.9% (plus) 100 ML 20 MG IV (02:34)
[2022-03-25 04:28] LABS: SARS Covid-2 Antigen negative (Negative)
[2022-03-25 13:04] LABS: Blood Gas CCRB Time 1116
== END 2022-03-25 02:30 | disposition short-term general hospital (02) | DRG 377 ==
LOC: ER 08:07 → MEDSURG 08:33 → ICU 03-24 13:06
PROVIDERS: Emergency Medicine; Student in an Organized Health Care Education/Training Program; Admitting Provider Student in an Organized Health Care Education/Training Program; Emergency Provider Emergency Medicine; PCP Family Medicine; Visit Provider Student in an Organized Health Care Education/Training Program
DX: K57.31 Diverticulosis of large intestine without perforation or abscess with bleeding (principal); R57.8 Other shock; K56.609 Unspecified intestinal obstruction, unspecified as to partial versus complete obstruction; E87.20 Acidosis, unspecified; N17.9 Acute kidney failure, unspecified; I10 Essential (primary) hypertension; I48.0 Paroxysmal atrial fibrillation; I34.0 Nonrheumatic mitral (valve) insufficiency; E78.2 Mixed hyperlipidemia; G31.84 Mild cognitive impairment of uncertain or unknown etiology; Z88.0 Allergy status to penicillin; Z88.2 Allergy status to sulfonamides; E86.0 Dehydration; Z79.01 Long term (current) use of anticoagulants
CPT/HCPCS: 36415; 36430; 36592; 36600; 71045; 74018; 74176; 80048; 80053; 80061; 81001; 82607; 82746; 82803; 83036; 83540; 83550; 83605; 83735; 84100; 84145; 84443; 85014; 85018; 85025; 85730; 86850; 86900; 86920; 86927; 87040; 87426; 93005; 96372; 96374; 96375; 96376; 99285; C9113; J0692; J1170; J1644; J1650; J2185; J2250; J2270; J2405; J3370; J3490; J7030; J7040; J7042; J7050; J7060; J7070; P9016; P9017; P9047